=== PATIENT | male | born 1930 | race African-American/Black ===

== ENCOUNTER 2017-03-24 00:54 | Inpatient (IN) | payer MEDICARE, OTHER ==
[~2017-03-24] VITALS: Ht 182.9 cm; Wt 83.7 kg
[2017-03-24] MEDS ORDERED: TIMO10DR5 EACHEYE (02:16)
[2017-03-24] MEDS ORDERED: ERGO500027 PO (02:16)
[2017-03-24] MEDS ORDERED: SIMV20TA3 PO (02:16)
[2017-03-24] MEDS ORDERED: TAMS0.4C2 PO (02:16)
[2017-03-24] MEDS ORDERED: DONE10TA7 PO (02:16)
[2017-03-24] MEDS ORDERED: FINA5TAB4 PO (02:16)
[2017-03-24] MEDS ORDERED: FLUT16SP21 NS (02:16)
[2017-03-24] MEDS ORDERED: LISI10TA2 PO (02:16)
[2017-03-24] MEDS ORDERED: MEMA10TA PO (02:16)
[2017-03-24] MEDS ORDERED: LORA10TA3 PO (02:16)
[2017-03-24 02:18] VITALS: BP 144/73
[2017-03-24] MEDS ORDERED: METHYL SALICYLATE/MENTHOL TOPICAL OINTMENT 29GM TUBE. TP PRN (03:15)
[2017-03-24] MEDS ORDERED: ACETAMINOPHEN 325 MG TABLET PO PRN (03:15)
[2017-03-24] MEDS ORDERED: MAG HYDROX/AL HYDROX/SIMETH 30 ML ORAL.SUSP PO PRN (03:15)
[2017-03-24] MEDS ORDERED: MAGNESIUM HYDROXIDE 2,400 MG/30 ML ORAL.SUSP. PO PRN (03:15)
[2017-03-24 05:38] VITALS: BP 136/81
[2017-03-24 06:39] LABS: BILIRUBIN,URINE NEG (NEG); CLARITY,URINE CLEAR; COLOR,URINE YELLOW; GLUCOSE,URINE NEG (NEG); NITRITE,URINE NEG (NEG); RBC,URINE RARE /HPF (0-2); UROBILINOGEN,URINE 0.2 mg/dL (0.2 mg/dL); WBC,URINE RARE /HPF (0-4)
[2017-03-24 06:40] LABS: BACTERIA,URINE 0 /HPF (0-FEW); HYALINE CASTS, URINE OCC /HPF; SQUAMOUS EPITHELIAL CELL,UR OCC /LPF
[2017-03-24 07:53] LABS: BASO # 0.1 x10^3/uL (0.0-0.2); BASO % 1 % (0-3); EOS # 0.1 x10^3/uL (0.0-0.7); EOS % 2 % (0-3); HEMOGLOBIN 11.1 g/dL (13.0-17.5); LYMPH # 1.4 x10^3/uL (1.0-4.8); LYMPH % 28 % (24-48); MEAN CORPUSCULAR HEMOGLOBIN 28 pg (25-35); MEAN CORPUSCULAR HGB CONC 33 g/dL (31-37); MEAN CORPUSCULAR VOLUME 86 fL (79-100); MONO # 0.7 x10^3/uL (0.0-1.1); MONO % 13 % (0-9); NEUT # 2.9 x10^3uL (1.8-7.7); NEUT % 56 % (31-73); PLATELET COUNT 108 x10^3/uL (140-400); RED BLOOD COUNT 3.96 x10^6/uL (4.30-5.70); RED CELL DISTRIBUTION WIDTH 13.7 % (11.5-14.5); WHITE BLOOD COUNT 5.2 x10^3/uL (4.0-11.0)
[2017-03-24 08:14] LABS: ALBUMIN 3.4 g/dL (3.4-5.0); CALCIUM 8.4 mg/dL (8.5-10.1); CREATININE 1.8 mg/dL (0.7-1.3); GFR 43.5; POTASSIUM 3.9 mmol/L (3.5-5.1); TOTAL BILIRUBIN 0.3 mg/dL (0.2-1.0); TOTAL PROTEIN 6.8 g/dL (6.4-8.2)
[2017-03-24] MEDS ORDERED: LISINOPRIL 10 MG TABLET PO SCH (09:00)
[2017-03-24] MEDS: DONEPEZIL HCL 10 MG TABLET PO SCH (09:26)
[2017-03-24] MEDS: FLUTICASONE 50MCG/NASAL SPRAY 16GM BOTTLE. NS SCH (09:27)
[2017-03-24] MEDS: MEMANTINE 10 MG TABLET. PO SCH ×2 (09:27→20:00)
[2017-03-24] MEDS: CETIRIZINE HCL 10 MG TABLET PO SCH (09:27)
[2017-03-24] MEDS: TIMOLOL 0.5% OPHTH SOLUTION 5ML BOTTLE. OU SCH (09:27)
[2017-03-24] MEDS: TAMSULOSIN 0.4 MG CAP.ER.24H. PO SCH (09:27)
[2017-03-24] MEDS: CHOLECALCIFEROL (VITAMIN D3) 50,000 UNIT CAPSULE PO SCH (09:28)
[2017-03-24 15:55] LABS: THYROID STIM HORMONE (TSH) 2.15 uIU/mL (0.358-3.740)
[2017-03-24 16:37] VITALS: BP 122/66
[2017-03-24 19:08] LABS: T3 TOTAL 80 ng/dL (71-180); THYROXINE 7.3 ug/dL (4.5-12.0)
[2017-03-24] MEDS: SIMVASTATIN 20 MG TABLET PO SCH (20:00)
[2017-03-24] MEDS: FINASTERIDE 5 MG TABLET PO SCH (20:00)
--- NOTE | 2017-03-24 20:05 | PDOC ---
Exam Kj Demential Exam: Kj Note: Please also refer to the separate dictated note~for this date of service dictated separately.~Patient seen individually. Discussed the patient with Nursing staff reviewed the chart.~Reviewed interim history and current functioning. Reviewed vital signs,~Labs/ Radiology~and current medications noted below. Continue current treatment with the changes noted in the dictated addendum note Assessment: Vital Signs: Vital Signs Date Time Temp Pulse Resp B/P (MAP) Pulse Ox O2 Delivery O2 Flow Rate FiO2 03/24/17 16:37 98.0 84 20 122/66 (84) 97 03/24/17 05:38 Room Air I&O Intake and Output 03/24/17 07:00 Intake Total 360 ml Balance 360 ml Intake Oral 360 ml # Voids 1 Labs: Laboratory Tests Test 03/24/17 05:50 03/24/17 07:26 Urine Collection Type Unknown Urine Color Yellow Urine Clarity Clear Urine pH 5.5 Urine Specific [place] 1.015 Urine Protein Neg (NEG-TRACE) Urine Glucose (UA) Neg mg/dL (NEG) Urine Ketones (Stick) Neg mg/dL (NEG) Urine Blood Trace (NEG) Urine Nitrite Neg (NEG) Urine Bilirubin Neg (NEG) Urine Urobilinogen Dipstick 0.2 mg/dL (0.2 mg/dL) Urine Leukocyte Esterase Neg (NEG) Urine RBC Rare /HPF (0-2) Urine WBC Rare /HPF (0-4) Urine Squamous Epithelial Cells Occ /LPF Urine Bacteria 0 /HPF (0-FEW) Urine Hyaline Casts Occ /HPF Urine Mucus Slight /LPF White Blood Count 5.2 x10^3/uL (4.0-11.0) Red Blood Count 3.96 x10^6/uL (4.30-5.70) L Hemoglobin 11.1 g/dL (13.0-17.5) L Hematocrit 34.0 % (39.0-53.0) L Mean Corpuscular Volume 86 fL (79-100) Mean Corpuscular Hemoglobin 28 pg (25-35) Mean Corpuscular Hemoglobin Concent 33 g/dL (31-37) Red Cell Distribution Width 13.7 % (11.5-14.5) Platelet Count 108 x10^3/uL (140-400) L Neutrophils (%) (Auto) 56 % (31-73) Lymphocytes (%) (Auto) 28 % (24-48) Monocytes (%) (Auto) 13 % (0-9) H Eosinophils (%) (Auto) 2 % (0-3) Basophils (%) (Auto) 1 % (0-3) Neutrophils # (Auto) 2.9 x10^3uL (1.8-7.7) Lymphocytes # (Auto) 1.4 x10^3/uL (1.0-4.8) Monocytes # (Auto) 0.7 x10^3/uL (0.0-1.1) Eosinophils # (Auto) 0.1 x10^3/uL (0.0-0.7) Basophils # (Auto) 0.1 x10^3/uL (0.0-0.2) Sodium Level 142 mmol/L (136-145) Potassium Level 3.9 mmol/L (3.5-5.1) Chloride Level 108 mmol/L (98-107) H Carbon Dioxide Level 29 mmol/L (21-32) Anion Gap 5 (6-14) L Blood Urea Nitrogen 28 mg/dL (8-26) H Creatinine 1.8 mg/dL (0.7-1.3) H Estimated GFR (Cockcroft-Gault) 43.5 BUN/Creatinine Ratio 16 (6-20) Glucose Level 94 mg/dL (70-99) Calcium Level 8.4 mg/dL (8.5-10.1) L Magnesium Level 2.0 mg/dL (1.8-2.4) Total Bilirubin 0.3 mg/dL (0.2-1.0) Aspartate Amino Transferase (AST) 21 U/L (15-37) Alanine Aminotransferase (ALT) 21 U/L (16-63) Alkaline Phosphatase 61 U/L (46-116) Total Protein 6.8 g/dL (6.4-8.2) Albumin 3.4 g/dL (3.4-5.0) Albumin/Globulin Ratio 1.0 (1.0-1.7) Triglycerides Level 43 mg/dL (0-150) Cholesterol Level 140 mg/dL (0-200) LDL Cholesterol, Calculated 74 mg/dL (0-100) VLDL Cholesterol, Calculated 8 mg/dL (0-40) Non-HDL Cholesterol Calculated 82 mg/dL (0-129) HDL Cholesterol 58 mg/dL (40-60) Cholesterol/HDL Ratio 2.0 Vitamin B12 Level 447 pg/mL (247-911) 25-Hydroxy Vitamin D Total Pending Thyroid Stimulating Hormone (TSH) 2.150 uIU/mL (0.358-3.740) Thyroxine (T4) 7.3 ug/dL (4.5-12.0) Total Triiodothyronine (TT3) 80 ng/dL (71-180) RPR Titer Additional Testing Pending Current Medications: Meds: Current Medications Acetaminophen (Tylenol) 650 mg PRN Q6HRS PRN PO PAIN / TEMP; Start 03/24/17 at 03:15 Multi-Ingredient Ointment (Analgesic [place]) 1 stefanie PRN QID PRN TP MUSCLE PAIN; Start 03/24/17 at 03:15 Al Hydroxide/Mg Hydroxide (Mylanta Plus Xs) 15 ml PRN AFTMEALHC PRN PO DYSPEPSIA; Start 03/24/17 at 03:15 Magnesium Hydroxide (Milk Of Magnesia) 2,400 mg PRN QHS PRN PO CONSTIPATION; Start 03/24/17 at 03:15 Finasteride (Proscar) 5 mg HS PO Last administered on 03/24/17 20:00; Start at 21:00 Fluticasone Propionate (Flonase) 2 spray DAILY NS Last administered on 09:27; Start 03/24/17 at 09:00 Lisinopril (Prinivil) 10 mg DAILY PO Last administered on 03/24/17 09:26; Start 03/24/17 at 09:00; Stop 03/24/17 at 16:29; Status DC Simvastatin (Zocor) 20 mg HS PO Last administered on 03/24/17 20:00; Start at 21:00 Tamsulosin HCl (Flomax) 0.8 mg DAILY PO Last administered on 03/24/17 09:27; Start 03/24/17 at 09:00 Timolol Maleate (Timoptic 0.5% Oph) 1 drop DAILY OU Last administered on 03/24 09:27; Start 03/24/17 at 09:00 Vitamin D (Vitamin D3) 50,000 unit WEEKLY PO Last administered on 03/24/17 09: 28; Start 03/24/17 at 09:00 Cetirizine HCl (ZyrTEC) 10 mg DAILY PO Last administered on 03/24/17 09:27; Start 03/24/17 at 09:00 Donepezil HCl (Aricept) 10 mg DAILY PO Last administered on 03/24/17 09:26; Start 03/24/17 at 09:00 Memantine (Namenda) 10 mg BID PO Last administered on 03/24/17 20:00; Start at 09:00 Olanzapine (ZyPREXA ZYDIS) 2.5 mg PRN Q2HR PRN PO PSYCHOSIS; Start 03/24/17 at 04:30 Amlodipine Besylate (Norvasc) 5 mg DAILY PO ; Start 03/25/17 at 09:00 Sertraline HCl (Zoloft) 25 mg DAILY PO ; Start 03/25/17 at 09:00 Active Scripts Active Reported Timoptic (Timolol Maleate) 10 Ml Drops 1 Drop EACHEYE DAILY Tamsulosin Hcl 0.4 Mg Cap.er.24h 0.8 Mg PO DAILY Simvastatin 20 Mg Tablet 20 Mg PO HS Namenda (Memantine Hcl) 10 Mg Tablet 10 Mg PO BID Loratadine 10 Mg Tablet 10 Mg PO DAILY Lisinopril 10 Mg Tablet 10 Mg PO DAILY Fluticasone Propionate Nasal [place] (Fluticasone Propionate) 16 Gm [place].susp 2 [place] NS DAILY Finasteride 5 Mg Tablet 5 Mg PO HS Vitamin D2 (Ergocalciferol (Vitamin D2)) 50,000 Unit Capsule 50,000 Unit PO WEEKLY Donepezil Hcl 10 Mg Tablet 10 Mg PO DAILY Diagnosis: Problems: (1) Anxiety disorder (2) Dementia, vascular, with depression (3) Dementia, vascular, with delusions (4) Dementia in Alzheimer's disease with depression (5) 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
--- NOTE | 2017-03-25 00:14 | HP ---
ADMIT DATE: 03/24/2017 IDENTIFYING DATA: The patient is an 86-year-old -English male, referred to us from the Emergency Room at the [facility] where he presented from home after he became aggressive towards his . This had been worsening over the past 1 week. He threatened to shoot his reportedly. He had lost his driving privileges on 03/23/2017 on account of his worsening dementia, which he would not admit to. Reportedly, the has ALS and is not able to help him as much now, thus further worsening his agitation, mood lability, aggression. We were contacted by the Emergency Room physician at the [facility], who felt the patient was potentially dangerous if were to return home. Given some of the above behaviors and his confusion and he needed inpatient psychiatric stabilization, thus prompting this admission. CHIEF COMPLAINT: "I am okay. I was in the [place]. My memory is just fine. The year is 2014." HISTORY OF PRESENT ILLNESS: The patient has a history of dementia, Alzheimer's vascular type. Reportedly, lives at home with his and recently he has been getting more agitated, aggressive, threatening to shoot her. He also lost his driving privileges very recently due to dangerous behaviors behind the wheel. He has had sleep and appetite changes, minimizes most of his problems. He has been paranoid. No active suicidal ideation noted. No specific homicidal ideation other than noted above. No clear history of bipolar disorder. PAST PSYCHIATRIC HISTORY: Positive for progressive dementia followed by Dr. Fraser at the [facility]. PAST MEDICAL HISTORY: GERD, carpal tunnel syndrome, BPH, hypertension, hyperlipidemia, chronic kidney disease. Diet is regular. Ambulates independently. UA was negative at the [facility]. Code status is full code. ALLERGIES: RED DYE. CURRENT PSYCHOTROPICS: Namenda 10 mg b.i.d., Aricept 10 mg a day, Zyprexa p.r.n. FAMILY HISTORY: Noncontributory. SOCIAL HISTORY: No history of alcohol or drug abuse, physical, sexual or elder abuse. He is not known to be a perpetrator. MENTAL STATUS EXAMINATION: The patient was seen individually the evening of 03/24/2017. I had been contacted by the nursing staff around midnight of 03/23/2015, morning of 03/24/2017, after we were contacted by the ER physician at the [facility]. I have reviewed all of this information and at that time, I had agreed to admit the patient. The patient felt the year was 2014. He is somewhat paranoid, forgetful, minimizes his memory problems, able to spell "WORLD" forward with some assistance, unable to spell it backward, "I can barely spell it forward." He is unable to do serial 7's. Speech is coherent, somewhat anxious, irritable at times. No active suicidal or homicidal ideation. Attention span short, language function intact. LABORATORY DATA: Reviewed. REVIEW OF SYSTEMS: No CV, , pulmonary, eye, ENT system symptoms on review. IMPRESSION: Major neurocognitive disorder, Alzheimer, vascular with depression, delusion, behavioral disturbance; anxiety disorder, unspecified; impulse control disorder, unspecified. Rest as above. PLAN: Admit to the Geropsychiatry Unit at [facility]. I will see the patient daily individually from a psychiatric standpoint and medical followup per Dr. aMrtin/Dr. Baptiste. Continue the patient on his current psychotropics, start Zoloft 25 mg a day for mood, anxiety, obsessive symptoms along with irritability. We will make further adjustments as clinically indicated. VALERIY LOPEZ MD DR: KATERYNA/augusto JOB#: [id number] / [id number]
[2017-03-25 05:09] LABS: HEMOGLOBIN A1C 5.6 % (4.8-5.6)
[2017-03-25 06:34] VITALS: BP 127/68
[2017-03-25] MEDS ORDERED: SERTRALINE 25 MG TABLET. PO SCH (09:00)
[2017-03-25] MEDS: amLODIPine BESYLATE 5 MG TABLET PO SCH (09:00)
[2017-03-25] MEDS: MEMANTINE 10 MG TABLET. PO SCH ×2 (09:16→19:53)
[2017-03-25] MEDS: TAMSULOSIN 0.4 MG CAP.ER.24H. PO SCH (09:16)
[2017-03-25] MEDS: CETIRIZINE HCL 10 MG TABLET PO SCH (09:16)
[2017-03-25] MEDS: DONEPEZIL HCL 10 MG TABLET PO SCH (09:16)
[2017-03-25] MEDS: TIMOLOL 0.5% OPHTH SOLUTION 5ML BOTTLE. OU SCH (09:19)
[2017-03-25] MEDS: FLUTICASONE 50MCG/NASAL SPRAY 16GM BOTTLE. NS SCH (09:19)
--- NOTE | 2017-03-25 10:14 | CONS ---
DATE OF CONSULTATION: 03/24/2017 Consult for medical management for the patient. HISTORY OF PRESENT ILLNESS: The patient is an 86-year-old male patient who was admitted on the account becoming more aggressive with his over the past week, possibly threatening to shoot her. He apparently lost his driving privileges on 03/23/2017. His has amyotrophic lateral sclerosis and she is not able to help him as much now and was admitted for inpatient psychiatric stabilization. On questioning him, he denied any complaint. PAST MEDICAL HISTORY: Significant for hypertension, hyperlipidemia, chronic kidney disease, benign prostatic hypertrophy, carpal tunnel syndrome and gastroesophageal reflux disease. PAST PSYCHIATRIC HISTORY: Significant for Alzheimer's disease and dementia. PAST SURGICAL HISTORY: Unremarkable. ALLERGIES: HE HAS ALLERGIES TO RED DYE. MEDICATIONS: He is currently on following medications: He is on Aricept 10 mg p.o. daily, Ergocalciferol 50,000 international units once a week, finasteride 5 mg at bedtime, fluticasone propionate 2 sprays to each nostril daily, lisinopril 10 mg once a day, loratadine 10 mg once a day, Namenda 10 mg p.o. b.i.d., simvastatin 20 mg at bedtime, tamsulosin 0.8 mg daily and timolol maleate 1 drop to each eye daily. FAMILY HISTORY: Unremarkable. SOCIAL HISTORY: He is , currently does not smoke, drink alcohol or use recreational drugs. REVIEW OF SYSTEMS: As in history of the present illness. PHYSICAL EXAMINATION GENERAL: When I examined him, he was sitting on the edge of the bed comfortably, in no apparent distress, slightly pale, but no jaundice, cyanosis, no lymphadenopathy, no thyromegaly, no jugular venous distention, no limb edema. VITAL SIGNS: His heart rate was 70, blood pressure was 136/81, temperature was 98, respiratory rate 20, and oxygen saturation was 98% on room air. HEENT: Showed normocephalic, atraumatic. NECK: Supple. HEART: Showed normal first and second heart sounds. No gallop, rub or murmur. CHEST: Clear to auscultation. No crepitation or rhonchi. ABDOMEN: Distended, soft, nontender. No guarding or rigidity. No organomegaly. Hernial orifices intact. Bowel sounds normal. NEUROLOGIC: He was awake, alert and oriented to time, place and person. Cranial nerves intact. EXTREMITIES: He moves extremities without difficulty, ambulates without assistance or assistive devices. LABORATORY DATA: Showed a serum sodium of 142, potassium 3.9, chloride 108, bicarbonate 29, anion gap of 5, BUN 28, creatinine 1.8. Estimated GFR was 43 mL per minute. His glucose was 94, calcium was 8.4, magnesium 2. Total bilirubin, AST, ALT, alkaline phosphatase were normal. Total protein was 6.8, albumin 3.4. Serum triglycerides were 43, total cholesterol 140, LDL was 74, VLDL was 8, and HDL cholesterol was 58. Cholesterol to HDL cholesterol ratio was 2. His vitamin B12 . TSH 2.15. His white cell count was 5200, hemoglobin 11, hematocrit 34, MCV 86 and platelet count of 108,000 with normal manual differential. Urinalysis showed the urine was yellow, clear with a pH of 5.5, specific gravity of 1.015. The urine was negative for protein, glucose, ketones, trace blood, negative for nitrite and leukocyte esterase. There are rare rbcs, rare wbcs, no bacteria. SUMMARY: This is an 86-year-old -[place] male patient who apparently lost his driving privileges and became more aggressive with his last week, possibly threatening to shoot her. Basically, all this happened when he went to the [facility] and the doctor told him that he could not drive. He went home and all the guns were taken out of the house as he threatened to shoot his and was admitted for inpatient psychiatric stabilization medically. His vital signs are within acceptable range. His lab work showed that he has chronic kidney injury with a BUN of 28, creatinine 1.8. His hemoglobin and hematocrit was 11 and 34, he has normochromic normocytic anemia; however, he has also thrombocytopenia with platelet count of 108,000. My plan is to discontinue his lisinopril and start him on some amlodipine and to repeat his lab work. Thank you, Dr. Flynn for allowing me to participate in the care of this patient. ZURI JARA MD DR: ELIAN/augusto JOB#: [id number] / [id number]
[2017-03-25 16:41] VITALS: BP 114/73
[2017-03-25] MEDS: FINASTERIDE 5 MG TABLET PO SCH (19:53)
[2017-03-25] MEDS: SIMVASTATIN 20 MG TABLET PO SCH (19:53)
--- NOTE | 2017-03-25 20:05 | PDOC ---
Exam Kj Demential Exam: Kj Note: Please also refer to the separate dictated note~for this date of service dictated separately.~Patient seen individually. Discussed the patient with Nursing staff reviewed the chart.~Reviewed interim history and current functioning. Reviewed vital signs,~Labs/ Radiology~and current medications noted below. Continue current treatment with the changes noted in the dictated addendum note Assessment: Vital Signs: Vital Signs Date Time Temp Pulse Resp B/P (MAP) Pulse Ox O2 Delivery O2 Flow Rate FiO2 03/25/17 16:41 97.7 80 20 114/73 (87) 96 03/24/17 05:38 Room Air I&O Intake and Output 03/25/17 07:00 Intake Total 1700 ml Balance 1700 ml Intake Oral 1700 ml # Voids 1 # Bowel Movements 1 Current Medications: Meds: Current Medications Acetaminophen (Tylenol) 650 mg PRN Q6HRS PRN PO PAIN / TEMP; Start 03/24/17 at 03:15 Multi-Ingredient Ointment (Analgesic [place]) 1 stefanie PRN QID PRN TP MUSCLE PAIN; Start 03/24/17 at 03:15 Al Hydroxide/Mg Hydroxide (Mylanta Plus Xs) 15 ml PRN AFTMEALHC PRN PO DYSPEPSIA; Start 03/24/17 at 03:15 Magnesium Hydroxide (Milk Of Magnesia) 2,400 mg PRN QHS PRN PO CONSTIPATION; Start 03/24/17 at 03:15 Finasteride (Proscar) 5 mg HS PO Last administered on 03/25/17 19:53; Start at 21:00 Fluticasone Propionate (Flonase) 2 spray DAILY NS Last administered on 09:19; Start 03/24/17 at 09:00 Lisinopril (Prinivil) 10 mg DAILY PO Last administered on 03/24/17 09:26; Start 03/24/17 at 09:00; Stop 03/24/17 at 16:29; Status DC Simvastatin (Zocor) 20 mg HS PO Last administered on 03/25/17 19:53; Start at 21:00 Tamsulosin HCl (Flomax) 0.8 mg DAILY PO Last administered on 03/25/17 09:16; Start 03/24/17 at 09:00 Timolol Maleate (Timoptic 0.5% Ophth) 1 drop DAILY OU Last administered on 03/25 09:19; Start 03/24/17 at 09:00 Vitamin D (Vitamin D3) 50,000 unit WEEKLY PO Last administered on 03/24/17 09: 28; Start 03/24/17 at 09:00 Cetirizine HCl (ZyrTEC) 10 mg DAILY PO Last administered on 03/25/17 09:16; Start 03/24/17 at 09:00 Donepezil HCl (Aricept) 10 mg DAILY PO Last administered on 03/25/17 09:16; Start 03/24/17 at 09:00 Memantine (Namenda) 10 mg BID PO Last administered on 03/25/17 19:53; Start at 09:00 Olanzapine (ZyPREXA ZYDIS) 2.5 mg PRN Q2HR PRN PO PSYCHOSIS; Start 03/24/17 at 04:30 Amlodipine Besylate (Norvasc) 5 mg DAILY PO Last administered on 03/25/17 09: 00; Start 03/25/17 at 09:00 Sertraline HCl (Zoloft) 25 mg DAILY PO Last administered on 03/25/17 09:21; Start 03/25/17 at 09:00; Stop 03/25/17 at 18:40; Status DC Sertraline HCl (Zoloft) 50 mg DAILY PO ; Start 03/26/17 at 09:00 Active Scripts Active Reported Timoptic (Timolol Maleate) 10 Ml Drops 1 Drop EACHEYE DAILY Tamsulosin Hcl 0.4 Mg Cap.er.24h 0.8 Mg PO DAILY Simvastatin 20 Mg Tablet 20 Mg PO HS Namenda (Memantine Hcl) 10 Mg Tablet 10 Mg PO BID Loratadine 10 Mg Tablet 10 Mg PO DAILY Lisinopril 10 Mg Tablet 10 Mg PO DAILY Fluticasone Propionate Nasal [place] (Fluticasone Propionate) 16 Gm [place].susp 2 [place] NS DAILY Finasteride 5 Mg Tablet 5 Mg PO HS Vitamin D2 (Ergocalciferol (Vitamin D2)) 50,000 Unit Capsule 50,000 Unit PO WEEKLY Donepezil Hcl 10 Mg Tablet 10 Mg PO DAILY Diagnosis: Problems: (1) Anxiety disorder (2) Dementia, vascular, with depression (3) Dementia, vascular, with delusions (4) Dementia in Alzheimer's disease with depression (5) Dementia in Alzheimer's disease with delusions (6) Psychosis, atypical VALERIY LOPEZ MD Mar 25, 2017 20:05
--- NOTE | 2017-03-25 23:38 | ACF ---
Admission Criteria Forms PSYCHIATRIC DISORDERS Clinical Indications for Inpatient Care (Place 'X' for any and all applicable criteria): Ongoing inpatient care may be needed for 1 or more of the following(1)(2)(3)(4)( 6)(7)(8): [ ]I. Danger to self or others not manageable at lower level of care. [ ]II. Grave disability (eg, inability to perform self care necessary at lower level of care) [ ]III. Agitation or inappropriate behavior interfering with care for primary condition (eg, attempting to discontinue lines or drains prematurely, unable to cooperate with respiratory care) [x]IV. Severe disability or disorder indicated by ALL of the following: [x]a) Severe behavioral health disorder-related symptoms or condition indicated by 1 or more of the following: [x]i) Severe problem with cognition, memory, judgment, or impulse control [ ]ii) Severe clinical manifestations (eg, hallucinations, delusions, other acute psychotic symptoms, gume, extreme agitation or anxiety) [x]b) Patient management at lower level of care is not feasible until acute intervention or modification is initiated. Extended stay beyond goal length of stay for the primary condition may be needed untilALLof the following are present(1)(2)(3)(4)(722)(23): [ ]a) Danger to self or others is absent or manageable at lower level of care [ ]b) Behavior crisis management, including physical or chemical restraints, is required and is not available at a lower level of care. [ ]c) Behavioral symptoms (e.g., agitation, somnolence, inappropriate behavior) are present, and are not manageable at a lower level of care. [ ]d) Patient cannot understand follow-up treatment and crisis plan. [ ]e) Provider and supports are sufficiently available at lower level of care. [ ]f) Patient can participate (e.g., verify absence of plan for harm) and is in needed of monitoring. The original [facility] content created by [facility] [employer] has been revised. The portions of the content which have been revised are identified through the use of italic text, and [employer] has neither reviewed nor approved the modified material. All other unmodified content is copyright [facility] [id number]. Please see references footnoted in the original [facility] edition 2015 Admission Criteria Met?: Yes KONG VEGA Mar 25, 2017 23:38
[2017-03-26 06:01] VITALS: BP 151/82
[2017-03-26] MEDS: amLODIPine BESYLATE 5 MG TABLET PO SCH (09:00)
[2017-03-26] MEDS: CETIRIZINE HCL 10 MG TABLET PO SCH (10:15)
[2017-03-26] MEDS: DONEPEZIL HCL 10 MG TABLET PO SCH (10:16)
[2017-03-26] MEDS: MEMANTINE 10 MG TABLET. PO SCH ×2 (10:16→20:30)
[2017-03-26] MEDS: TAMSULOSIN 0.4 MG CAP.ER.24H. PO SCH (10:16)
[2017-03-26] MEDS: TIMOLOL 0.5% OPHTH SOLUTION 5ML BOTTLE. OU SCH (10:16)
[2017-03-26] MEDS: FLUTICASONE 50MCG/NASAL SPRAY 16GM BOTTLE. NS SCH (10:17)
[2017-03-26] MEDS: SERTRALINE 25 MG TABLET. PO SCH (10:19)
[2017-03-26 16:24] VITALS: BP 143/67
--- NOTE | 2017-03-26 20:03 | PDOC ---
Exam Kj Demential Exam: Kj Note: Please also refer to the separate dictated note~for this date of service dictated separately.~Patient seen individually. Discussed the patient with Nursing staff reviewed the chart.~Reviewed interim history and current functioning. Reviewed vital signs,~Labs/ Radiology~and current medications noted below. Continue current treatment with the changes noted in the dictated addendum note Assessment: Vital Signs: Vital Signs Date Time Temp Pulse Resp B/P (MAP) Pulse Ox O2 Delivery O2 Flow Rate FiO2 03/26/17 16:24 97.9 81 18 143/67 (92) 97 03/24/17 05:38 Room Air I&O Intake and Output 03/26/17 07:00 Intake Total 1320 ml Balance 1320 ml Intake Oral 1320 ml # Voids 1 Current Medications: Meds: Current Medications Acetaminophen (Tylenol) 650 mg PRN Q6HRS PRN PO PAIN / TEMP; Start 03/24/17 at 03:15 Multi-Ingredient Ointment (Analgesic [place]) 1 stefanie PRN QID PRN TP MUSCLE PAIN; Start 03/24/17 at 03:15 Al Hydroxide/Mg Hydroxide (Mylanta Plus Xs) 15 ml PRN AFTMEALHC PRN PO DYSPEPSIA; Start 03/24/17 at 03:15 Magnesium Hydroxide (Milk Of Magnesia) 2,400 mg PRN QHS PRN PO CONSTIPATION; Start 03/24/17 at 03:15 Finasteride (Proscar) 5 mg HS PO Last administered on 03/25/17 19:53; Start at 21:00 Fluticasone Propionate (Flonase) 2 spray DAILY NS Last administered on 10:17; Start 03/24/17 at 09:00 Lisinopril (Prinivil) 10 mg DAILY PO Last administered on 03/24/17 09:26; Start 03/24/17 at 09:00; Stop 03/24/17 at 16:29; Status DC Simvastatin (Zocor) 20 mg HS PO Last administered on 03/25/17 19:53; Start at 21:00 Tamsulosin HCl (Flomax) 0.8 mg DAILY PO Last administered on 03/26/17 10:16; Start 03/24/17 at 09:00 Timolol Maleate (Timoptic 0.5% Ophth) 1 drop DAILY OU Last administered on 03/26 10:16; Start 03/24/17 at 09:00 Vitamin D (Vitamin D3) 50,000 unit WEEKLY PO Last administered on 03/24/17 09: 28; Start 03/24/17 at 09:00 Cetirizine HCl (ZyrTEC) 10 mg DAILY PO Last administered on 03/26/17 10:15; Start 03/24/17 at 09:00 Donepezil HCl (Aricept) 10 mg DAILY PO Last administered on 03/26/17 10:16; Start 03/24/17 at 09:00 Memantine (Namenda) 10 mg BID PO Last administered on 03/26/17 10:16; Start at 09:00 Olanzapine (ZyPREXA ZYDIS) 2.5 mg PRN Q2HR PRN PO PSYCHOSIS; Start 03/24/17 at 04:30 Amlodipine Besylate (Norvasc) 5 mg DAILY PO Last administered on 03/26/17 09: 00; Start 03/25/17 at 09:00 Sertraline HCl (Zoloft) 25 mg DAILY PO Last administered on 03/25/17 09:21; Start 03/25/17 at 09:00; Stop 03/25/17 at 18:40; Status DC Sertraline HCl (Zoloft) 50 mg DAILY PO Last administered on 03/26/17 10:19; Start 03/26/17 at 09:00 Quetiapine Fumarate (SEROquel) 25 mg QHS PO ; Start 03/26/17 at 21:00 Active Scripts Active Reported Timoptic (Timolol Maleate) 10 Ml Drops 1 Drop EACHEYE DAILY Tamsulosin Hcl 0.4 Mg Cap.er.24h 0.8 Mg PO DAILY Simvastatin 20 Mg Tablet 20 Mg PO HS Namenda (Memantine Hcl) 10 Mg Tablet 10 Mg PO BID Loratadine 10 Mg Tablet 10 Mg PO DAILY Lisinopril 10 Mg Tablet 10 Mg PO DAILY Fluticasone Propionate Nasal [place] (Fluticasone Propionate) 16 Gm [place].susp 2 [place] NS DAILY Finasteride 5 Mg Tablet 5 Mg PO HS Vitamin D2 (Ergocalciferol (Vitamin D2)) 50,000 Unit Capsule 50,000 Unit PO WEEKLY Donepezil Hcl 10 Mg Tablet 10 Mg PO DAILY Diagnosis: Problems: (1) Anxiety disorder (2) Dementia, vascular, with depression (3) Dementia, vascular, with delusions (4) Dementia in Alzheimer's disease with depression (5) 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
[2017-03-26] MEDS: FINASTERIDE 5 MG TABLET PO SCH (20:30)
[2017-03-26] MEDS: SIMVASTATIN 20 MG TABLET PO SCH (20:30)
[2017-03-26] MEDS: QUEtiapine 25 MG TABLET. PO SCH (20:30)
--- NOTE | 2017-03-27 00:38 | PN ---
DATE: 03/25/2017 This is a late entry for 03/25/2017 and covers elements not covered in my initial note of 03/25/2017. I met with the patient evening of 03/25/2017. He remains somewhat confused, irritable at times, felt it was 07/2015 as I met with him. Son and [id number] visited. He was irritable in the evening. REVIEW OF SYSTEMS: No CV, , pulmonary, eye system symptoms on review. Reliability poor, did not seem to remember me even though I met him every day since he has been here. MENTAL STATUS EXAM: Oriented to himself and situation. Insight is somewhat limited. Judgment intact to standard questioning. Attention span short, language function intact. Mood and affect still somewhat anxious, labile at times, but less paranoid. LABORATORY DATA: Reviewed. IMPRESSION: Unchanged from initial note. PLAN: On 03/26/2017, increase Zoloft to 50 mg a day. Continue Namenda 10 b.i.d., Aricept 10 mg a day, Zyprexa p.r.n. Adjust as clinically indicated. Reviewed drug interactions, risk/benefit ratio favors no further change as of now. VALERIY LOPEZ MD DR: KATERYNA/augusto JOB#: [id number] / [id number]
[2017-03-27 06:21] VITALS: BP 127/79
[2017-03-27] MEDS: SERTRALINE 25 MG TABLET. PO SCH (08:21)
[2017-03-27] MEDS: CETIRIZINE HCL 10 MG TABLET PO SCH (08:21)
[2017-03-27] MEDS: DONEPEZIL HCL 10 MG TABLET PO SCH (08:21)
[2017-03-27] MEDS: TAMSULOSIN 0.4 MG CAP.ER.24H. PO SCH (08:22)
[2017-03-27] MEDS: amLODIPine BESYLATE 5 MG TABLET PO SCH (08:22)
[2017-03-27] MEDS: MEMANTINE 10 MG TABLET. PO SCH ×2 (08:22→19:50)
[2017-03-27] MEDS: TIMOLOL 0.5% OPHTH SOLUTION 5ML BOTTLE. OU SCH (08:23)
[2017-03-27] MEDS: FLUTICASONE 50MCG/NASAL SPRAY 16GM BOTTLE. NS SCH (08:23)
[2017-03-27 16:51] VITALS: BP 129/71
[2017-03-27] MEDS ORDERED: MELATONIN 3 MG TABLET PO PRN (18:45)
[2017-03-27] MEDS: FINASTERIDE 5 MG TABLET PO SCH (19:50)
[2017-03-27] MEDS: QUEtiapine 25 MG TABLET. PO SCH (19:51)
[2017-03-27] MEDS: SIMVASTATIN 20 MG TABLET PO SCH (19:51)
--- NOTE | 2017-03-27 20:10 | PDOC ---
Exam Kj Demential Exam: Kj Note: Please also refer to the separate dictated note~for this date of service dictated separately.~Patient seen individually. Discussed the patient with Nursing staff reviewed the chart.~Reviewed interim history and current functioning. Reviewed vital signs,~Labs/ Radiology~and current medications noted below. Continue current treatment with the changes noted in the dictated addendum note Assessment: Vital Signs: Vital Signs Date Time Temp Pulse Resp B/P (MAP) Pulse Ox O2 Delivery O2 Flow Rate FiO2 03/27/17 16:51 98.5 88 20 129/71 (90) 98 03/27/17 06:21 Room Air I&O Intake and Output 03/27/17 07:00 Intake Total 1080 ml Balance 1080 ml Intake Oral 1080 ml # Voids 1 Current Medications: Meds: Current Medications Acetaminophen (Tylenol) 650 mg PRN Q6HRS PRN PO PAIN / TEMP; Start 03/24/17 at 03:15 Multi-Ingredient Ointment (Analgesic [place]) 1 stefanie PRN QID PRN TP MUSCLE PAIN; Start 03/24/17 at 03:15 Al Hydroxide/Mg Hydroxide (Mylanta Plus Xs) 15 ml PRN AFTMEALHC PRN PO DYSPEPSIA; Start 03/24/17 at 03:15 Magnesium Hydroxide (Milk Of Magnesia) 2,400 mg PRN QHS PRN PO CONSTIPATION; Start 03/24/17 at 03:15 Finasteride (Proscar) 5 mg HS PO Last administered on 03/27/17 19:50; Start at 21:00 Fluticasone Propionate (Flonase) 2 spray DAILY NS Last administered on 08:23; Start 03/24/17 at 09:00 Lisinopril (Prinivil) 10 mg DAILY PO Last administered on 03/24/17 09:26; Start 03/24/17 at 09:00; Stop 03/24/17 at 16:29; Status DC Simvastatin (Zocor) 20 mg HS PO Last administered on 03/27/17 19:51; Start at 21:00 Tamsulosin HCl (Flomax) 0.8 mg DAILY PO Last administered on 03/27/17 08:22; Start 03/24/17 at 09:00 Timolol Maleate (Timoptic 0.5% Ophth) 1 drop DAILY OU Last administered on 03/27 08:23; Start 03/24/17 at 09:00 Vitamin D (Vitamin D3) 50,000 unit WEEKLY PO Last administered on 03/24/17 09: 28; Start 03/24/17 at 09:00 Cetirizine HCl (ZyrTEC) 10 mg DAILY PO Last administered on 03/27/17 08:21; Start 03/24/17 at 09:00 Donepezil HCl (Aricept) 10 mg DAILY PO Last administered on 03/27/17 08:21; Start 03/24/17 at 09:00 Memantine (Namenda) 10 mg BID PO Last administered on 03/27/17 19:50; Start at 09:00 Olanzapine (ZyPREXA ZYDIS) 2.5 mg PRN Q2HR PRN PO PSYCHOSIS Last administered on 03/27/17 00:26; Start 03/24/17 at 04:30 Amlodipine Besylate (Norvasc) 5 mg DAILY PO Last administered on 03/27/17 08: 22; Start 03/25/17 at 09:00 Sertraline HCl (Zoloft) 25 mg DAILY PO Last administered on 03/25/17 09:21; Start 03/25/17 at 09:00; Stop 03/25/17 at 18:40; Status DC Sertraline HCl (Zoloft) 50 mg DAILY PO Last administered on 03/27/17 08:21; Start 03/26/17 at 09:00 Quetiapine Fumarate (SEROquel) 25 mg QHS PO Last administered on 03/27/17 19: 51; Start 03/26/17 at 21:00 Melatonin 3 mg PRN QHS PRN PO INSOMNIA; Start 03/27/17 at 18:45 Active Scripts Active Reported Timoptic (Timolol Maleate) 10 Ml Drops 1 Drop EACHEYE DAILY Tamsulosin Hcl 0.4 Mg Cap.er.24h 0.8 Mg PO DAILY Simvastatin 20 Mg Tablet 20 Mg PO HS Namenda (Memantine Hcl) 10 Mg Tablet 10 Mg PO BID Loratadine 10 Mg Tablet 10 Mg PO DAILY Lisinopril 10 Mg Tablet 10 Mg PO DAILY Fluticasone Propionate Nasal [place] (Fluticasone Propionate) 16 Gm [place].susp 2 [place] NS DAILY Finasteride 5 Mg Tablet 5 Mg PO HS Vitamin D2 (Ergocalciferol (Vitamin D2)) 50,000 Unit Capsule 50,000 Unit PO WEEKLY Donepezil Hcl 10 Mg Tablet 10 Mg PO DAILY Diagnosis: Problems: (1) Anxiety disorder (2) Dementia, vascular, with depression (3) Dementia, vascular, 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
--- NOTE | 2017-03-28 02:41 | PN ---
DATE: 03/26/2017 This late entry 03/26/2017 covers elements not covered in my initial note. SUBJECTIVE: The patient was staffed at treatment team meeting morning of 03/26/2017, seen individually evening of 03/26/2017. The patient's son attended the treatment team meeting together with granddaughterMaritza. Reviewed the patient's history, diagnoses, medications, placement options at length. 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 REVIEW OF SYSTEMS: No CV, , pulmonary, eye, ENT system symptoms on review. Reliability poor. MENTAL STATUS EXAM: Oriented to himself. Insight, judgment, recent memory is impaired. Remote is better. Language function intact. Attention span short. Mood and affect lability is improved, less anxious. LABORATORY DATA: Reviewed. IMPRESSION: Unchanged from initial note. PLAN: Start Seroquel 25 mg p.o. at bedtime; Zoloft, continue at 50 mg a day; Namenda 10 b.i.d., Aricept 10 mg a day, Zyprexa p.r.n., adjust further as clinically indicated. Zoloft was recently increased. VALERIY LOPEZ MD DR: KATERYNA/augusto JOB#: [id number] / [id number]
[2017-03-28 06:19] VITALS: BP 159/89
--- NOTE | 2017-03-28 07:15 | EKG ---
[address] [address] Test Date: 2017-03-24 Test Time: 07:36:46 Pat Name: MARY JARAMILLO Department: Room: [address] [place] [address] Gender: Health Care Facility Administrator: : [id number] Requested By: ZURI JARA Order Number: [id number] Reading MD: Bryan Ruiz Measurements Intervals [place] Rate: P: IN: QRS: QRSD: T: QT: QTc: Interpretive Statements SR AMARILIS Electronically Signed On 04-06-2017 10:53:43 CDT by Bryan Ruiz
[2017-03-28] MEDS: SERTRALINE 25 MG TABLET. PO SCH (08:41)
[2017-03-28] MEDS: DONEPEZIL HCL 10 MG TABLET PO SCH (08:45)
[2017-03-28] MEDS: amLODIPine BESYLATE 5 MG TABLET PO SCH (08:45)
[2017-03-28] MEDS: TAMSULOSIN 0.4 MG CAP.ER.24H. PO SCH (08:45)
[2017-03-28] MEDS: CETIRIZINE HCL 10 MG TABLET PO SCH (08:45)
[2017-03-28] MEDS: MEMANTINE 10 MG TABLET. PO SCH ×2 (08:45→20:38)
[2017-03-28] MEDS: TIMOLOL 0.5% OPHTH SOLUTION 5ML BOTTLE. OU SCH (08:54)
[2017-03-28] MEDS: FLUTICASONE 50MCG/NASAL SPRAY 16GM BOTTLE. NS SCH (09:00)
[2017-03-28 15:56] VITALS: BP 103/58
[2017-03-28] MEDS: QUEtiapine 25 MG TABLET. PO SCH (20:38)
[2017-03-28] MEDS: SIMVASTATIN 20 MG TABLET PO SCH (20:38)
[2017-03-28] MEDS: FINASTERIDE 5 MG TABLET PO SCH (20:39)
--- NOTE | 2017-03-28 23:23 | PDOC ---
Exam Kj Demential Exam: Kj Note: Please also refer to the separate dictated note~for this date of service dictated separately.~Patient seen individually. Discussed the patient with Nursing staff reviewed the chart.~Reviewed interim history and current functioning. Reviewed vital signs,~Labs/ Radiology~and current medications noted below. Continue current treatment with the changes noted in the dictated addendum note Assessment: Vital Signs: Vital Signs Date Time Temp Pulse Resp B/P (MAP) Pulse Ox O2 Delivery O2 Flow Rate FiO2 03/28/17 15:56 98.7 81 20 103/58 (73) 96 03/27/17 06:21 Room Air I&O Intake and Output 03/28/17 07:00 Intake Total 1440 ml Balance 1440 ml Intake Oral 1440 ml Current Medications: Meds: Current Medications Acetaminophen (Tylenol) 650 mg PRN Q6HRS PRN PO PAIN / TEMP; Start 03/24/17 at 03:15 Multi-Ingredient Ointment (Analgesic [place]) 1 stefanie PRN QID PRN TP MUSCLE PAIN; Start 03/24/17 at 03:15 Al Hydroxide/Mg Hydroxide (Mylanta Plus Xs) 15 ml PRN AFTMEALHC PRN PO DYSPEPSIA; Start 03/24/17 at 03:15 Magnesium Hydroxide (Milk Of Magnesia) 2,400 mg PRN QHS PRN PO CONSTIPATION; Start 03/24/17 at 03:15 Finasteride (Proscar) 5 mg HS PO Last administered on 03/28/17 20:39; Start at 21:00 Fluticasone Propionate (Flonase) 2 spray DAILY NS Last administered on 09:00; Start 03/24/17 at 09:00 Lisinopril (Prinivil) 10 mg DAILY PO Last administered on 03/24/17 09:26; Start 03/24/17 at 09:00; Stop 03/24/17 at 16:29; Status DC Simvastatin (Zocor) 20 mg HS PO Last administered on 03/28/17 20:38; Start at 21:00 Tamsulosin HCl (Flomax) 0.8 mg DAILY PO Last administered on 03/28/17 08:45; Start 03/24/17 at 09:00 Timolol Maleate (Timoptic 0.5% Oph) 1 drop DAILY OU Last administered on 03/28 08:54; Start 03/24/17 at 09:00 Vitamin D (Vitamin D3) 50,000 unit WEEKLY PO Last administered on 03/24/17 09: 28; Start 03/24/17 at 09:00 Cetirizine HCl (ZyrTEC) 10 mg DAILY PO Last administered on 03/28/17 08:45; Start 03/24/17 at 09:00 Donepezil HCl (Aricept) 10 mg DAILY PO Last administered on 03/28/17 08:45; Start 03/24/17 at 09:00 Memantine (Namenda) 10 mg BID PO Last administered on 03/28/17 20:38; Start at 09:00 Olanzapine (ZyPREXA ZYDIS) 2.5 mg PRN Q2HR PRN PO PSYCHOSIS Last administered on 03/27/17 00:26; Start 03/24/17 at 04:30 Amlodipine Besylate (Norvasc) 5 mg DAILY PO Last administered on 03/28/17 08: 45; Start 03/25/17 at 09:00 Sertraline HCl (Zoloft) 25 mg DAILY PO Last administered on 03/25/17 09:21; Start 03/25/17 at 09:00; Stop 03/25/17 at 18:40; Status DC Sertraline HCl (Zoloft) 50 mg DAILY PO Last administered on 03/28/17 08:41; Start 03/26/17 at 09:00 Quetiapine Fumarate (SEROquel) 25 mg QHS PO Last administered on 03/28/17 20: 38; Start 03/26/17 at 21:00 Melatonin 3 mg PRN QHS PRN PO INSOMNIA; Start 03/27/17 at 18:45 Active Scripts Active Reported Timoptic (Timolol Maleate) 10 Ml Drops 1 Drop [place] DAILY Tamsulosin Hcl 0.4 Mg Cap.er.24h 0.8 Mg PO DAILY Simvastatin 20 Mg Tablet 20 Mg PO HS Namenda (Memantine Hcl) 10 Mg Tablet 10 Mg PO BID Loratadine 10 Mg Tablet 10 Mg PO DAILY Lisinopril 10 Mg Tablet 10 Mg PO DAILY Fluticasone Propionate Nasal [place] (Fluticasone Propionate) 16 Gm [place].susp 2 [place] NS DAILY Finasteride 5 Mg Tablet 5 Mg PO HS Vitamin D2 (Ergocalciferol (Vitamin D2)) 50,000 Unit Capsule 50,000 Unit PO WEEKLY Donepezil Hcl 10 Mg Tablet 10 Mg PO DAILY Diagnosis: Problems: (1) Anxiety disorder (2) Dementia, vascular, with depression (3) Dementia, vascular, with delusions (4) Dementia in Alzheimer's disease with depression (5) 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
[2017-03-29 05:52] VITALS: BP 161/82
[2017-03-29] MEDS: DONEPEZIL HCL 10 MG TABLET PO SCH (07:59)
[2017-03-29] MEDS: TAMSULOSIN 0.4 MG CAP.ER.24H. PO SCH (07:59)
[2017-03-29] MEDS: SERTRALINE 25 MG TABLET. PO SCH (07:59)
[2017-03-29] MEDS: amLODIPine BESYLATE 5 MG TABLET PO SCH (08:00)
[2017-03-29] MEDS: FLUTICASONE 50MCG/NASAL SPRAY 16GM BOTTLE. NS SCH (08:00)
[2017-03-29] MEDS: CETIRIZINE HCL 10 MG TABLET PO SCH (08:00)
[2017-03-29] MEDS: MEMANTINE 10 MG TABLET. PO SCH ×2 (08:00→20:52)
[2017-03-29] MEDS: TIMOLOL 0.5% OPHTH SOLUTION 5ML BOTTLE. OU SCH (08:01)
[2017-03-29 16:28] VITALS: BP 98/58
--- NOTE | 2017-03-29 20:03 | PDOC ---
Exam Kj Demential Exam: Kj Note: Please also refer to the separate dictated note~for this date of service dictated separately.~Patient seen individually. Discussed the patient with Nursing staff reviewed the chart.~Reviewed interim history and current functioning. Reviewed vital signs,~Labs/ Radiology~and current medications noted below. Continue current treatment with the changes noted in the dictated addendum note Assessment: Vital Signs: Vital Signs Date Time Temp Pulse Resp B/P (MAP) Pulse Ox O2 Delivery O2 Flow Rate FiO2 03/29/17 16:28 98.1 88 18 98/58 (71) 97 Room Air I&O Intake and Output 03/29/17 07:00 Intake Total 1205 ml Balance 1205 ml Intake Oral 1205 ml Current Medications: Meds: Current Medications Acetaminophen (Tylenol) 650 mg PRN Q6HRS PRN PO PAIN / TEMP; Start 03/24/17 at 03:15 Multi-Ingredient Ointment (Analgesic [place]) 1 stefanie PRN QID PRN TP MUSCLE PAIN; Start 03/24/17 at 03:15 Al Hydroxide/Mg Hydroxide (Mylanta Plus Xs) 15 ml PRN AFTMEALHC PRN PO DYSPEPSIA; Start 03/24/17 at 03:15 Magnesium Hydroxide (Milk Of Magnesia) 2,400 mg PRN QHS PRN PO CONSTIPATION; Start 03/24/17 at 03:15 Finasteride (Proscar) 5 mg HS PO Last administered on 03/28/17 20:39; Start at 21:00 Fluticasone Propionate (Flonase) 2 spray DAILY NS Last administered on 08:00; Start 03/24/17 at 09:00 Lisinopril (Prinivil) 10 mg DAILY PO Last administered on 03/24/17 09:26; Start 03/24/17 at 09:00; Stop 03/24/17 at 16:29; Status DC Simvastatin (Zocor) 20 mg HS PO Last administered on 03/28/17 20:38; Start at 21:00 Tamsulosin HCl (Flomax) 0.8 mg DAILY PO Last administered on 03/29/17 07:59; Start 03/24/17 at 09:00 Timolol Maleate (Timoptic 0.5% Ophth) 1 drop DAILY OU Last administered on 03/29 08:01; Start 03/24/17 at 09:00 Vitamin D (Vitamin D3) 50,000 unit WEEKLY PO Last administered on 03/24/17 09: 28; Start 03/24/17 at 09:00 Cetirizine HCl (ZyrTEC) 10 mg DAILY PO Last administered on 03/29/17 08:00; Start 03/24/17 at 09:00 Donepezil HCl (Aricept) 10 mg DAILY PO Last administered on 03/29/17 07:59; Start 03/24/17 at 09:00 Memantine (Namenda) 10 mg BID PO Last administered on 03/29/17 08:00; Start at 09:00 Olanzapine (ZyPREXA ZYDIS) 2.5 mg PRN Q2HR PRN PO PSYCHOSIS Last administered on 03/27/17 00:26; Start 03/24/17 at 04:30 Amlodipine Besylate (Norvasc) 5 mg DAILY PO Last administered on 03/29/17 08: 00; Start 03/25/17 at 09:00 Sertraline HCl (Zoloft) 25 mg DAILY PO Last administered on 03/25/17 09:21; Start 03/25/17 at 09:00; Stop 03/25/17 at 18:40; Status DC Sertraline HCl (Zoloft) 50 mg DAILY PO Last administered on 03/29/17 07:59; Start 03/26/17 at 09:00 Quetiapine Fumarate (SEROquel) 25 mg QHS PO Last administered on 03/28/17 20: 38; Start 03/26/17 at 21:00 Melatonin 3 mg PRN QHS PRN PO INSOMNIA; Start 03/27/17 at 18:45 Active Scripts Active Reported Timoptic (Timolol Maleate) 10 Ml Drops 1 Drop EACHEYE DAILY Tamsulosin Hcl 0.4 Mg Cap.er.24h 0.8 Mg PO DAILY Simvastatin 20 Mg Tablet 20 Mg PO HS Namenda (Memantine Hcl) 10 Mg Tablet 10 Mg PO BID Loratadine 10 Mg Tablet 10 Mg PO DAILY Lisinopril 10 Mg Tablet 10 Mg PO DAILY Fluticasone Propionate Nasal [place] (Fluticasone Propionate) 16 Gm [place].susp 2 [place] NS DAILY Finasteride 5 Mg Tablet 5 Mg PO HS Vitamin D2 (Ergocalciferol (Vitamin D2)) 50,000 Unit Capsule 50,000 Unit PO WEEKLY Donepezil Hcl 10 Mg Tablet 10 Mg PO DAILY Diagnosis: Problems: (1) Anxiety disorder (2) Dementia, vascular, with depression (3) Dementia, vascular, with delusions (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
[2017-03-29] MEDS: FINASTERIDE 5 MG TABLET PO SCH (20:52)
[2017-03-29] MEDS: SIMVASTATIN 20 MG TABLET PO SCH (20:52)
[2017-03-29] MEDS: QUEtiapine 25 MG TABLET. PO SCH (20:52)
--- NOTE | 2017-03-30 00:43 | PN ---
DATE: 03/28/2017 This late entry for 03/28/2017 covers elements not covered in my initial note of 03/28/2017. SUBJECTIVE: I met with the patient in the evening of 03/28/2017. The patient remains confused, somewhat forgetful, but pleasant, less labile, less delusional. REVIEW OF SYSTEMS: No CV, , pulmonary, eye, ENT system symptoms on review. Reliability poor. MENTAL STATUS EXAM: Oriented to himself. Insight, judgment, recent and remote memory, attention, concentration, fund of knowledge poor, consistent with his diagnosis mentioned in my initial note. PLAN: Continue Namenda 10 mg b.i.d., Aricept 10 mg a day, Zyprexa p.r.n., Zoloft 50 mg a day, melatonin p.r.n., Seroquel 25 mg at bedtime. Adjust further as clinically indicated. VALERIY LOPEZ MD DR: KATERYNA/augusto JOB#: [id number] / [id number]
[2017-03-30 06:16] VITALS: BP 134/74
[2017-03-30] MEDS: DONEPEZIL HCL 10 MG TABLET PO SCH (08:29)
[2017-03-30] MEDS: MEMANTINE 10 MG TABLET. PO SCH ×2 (08:29→20:22)
[2017-03-30] MEDS: amLODIPine BESYLATE 5 MG TABLET PO SCH (08:29)
[2017-03-30] MEDS: TAMSULOSIN 0.4 MG CAP.ER.24H. PO SCH (08:29)
[2017-03-30] MEDS: SERTRALINE 25 MG TABLET. PO SCH (08:30)
[2017-03-30] MEDS: CETIRIZINE HCL 10 MG TABLET PO SCH (08:30)
[2017-03-30] MEDS: FLUTICASONE 50MCG/NASAL SPRAY 16GM BOTTLE. NS SCH (08:32)
[2017-03-30] MEDS: TIMOLOL 0.5% OPHTH SOLUTION 5ML BOTTLE. OU SCH (08:32)
[2017-03-30 16:10] VITALS: BP 138/70
--- NOTE | 2017-03-30 19:59 | PDOC ---
Exam Kj Demential Exam: Kj Note: Please also refer to the separate dictated note~for this date of service dictated separately.~Patient seen individually. Discussed the patient with Nursing staff reviewed the chart.~Reviewed interim history and current functioning. Reviewed vital signs,~Labs/ Radiology~and current medications noted below. Continue current treatment with the changes noted in the dictated addendum note Assessment: Vital Signs: Vital Signs Date Time Temp Pulse Resp B/P (MAP) Pulse Ox O2 Delivery O2 Flow Rate FiO2 03/30/17 16:10 97.4 88 16 138/70 (92) 98 03/29/17 16:28 Room Air I&O Intake and Output 03/30/17 06:59 Intake Total 1320 ml Balance 1320 ml Intake Oral 1320 ml Current Medications: Meds: Current Medications Acetaminophen (Tylenol) 650 mg PRN Q6HRS PRN PO PAIN / TEMP; Start 03/24/17 at 03:15 Multi-Ingredient Ointment (Analgesic [place]) 1 stefanie PRN QID PRN TP MUSCLE PAIN; Start 03/24/17 at 03:15 Al Hydroxide/Mg Hydroxide (Mylanta Plus Xs) 15 ml PRN AFTMEALHC PRN PO DYSPEPSIA; Start 03/24/17 at 03:15 Magnesium Hydroxide (Milk Of Magnesia) 2,400 mg PRN QHS PRN PO CONSTIPATION; Start 03/24/17 at 03:15 Finasteride (Proscar) 5 mg HS PO Last administered on 03/29/17 20:52; Start at 21:00 Fluticasone Propionate (Flonase) 2 spray DAILY NS Last administered on 08:32; Start 03/24/17 at 09:00 Lisinopril (Prinivil) 10 mg DAILY PO Last administered on 03/24/17 09:26; Start 03/24/17 at 09:00; Stop 03/24/17 at 16:29; Status DC Simvastatin (Zocor) 20 mg HS PO Last administered on 03/29/17 20:52; Start at 21:00 Tamsulosin HCl (Flomax) 0.8 mg DAILY PO Last administered on 03/30/17 08:29; Start 03/24/17 at 09:00 Timolol Maleate (Timoptic 0.5% Oph) 1 drop DAILY OU Last administered on 03/30 08:32; Start 03/24/17 at 09:00 Vitamin D (Vitamin D3) 50,000 unit WEEKLY PO Last administered on 03/24/17 09: 28; Start 03/24/17 at 09:00 Cetirizine HCl (ZyrTEC) 10 mg DAILY PO Last administered on 03/30/17 08:30; Start 03/24/17 at 09:00 Donepezil HCl (Aricept) 10 mg DAILY PO Last administered on 03/30/17 08:29; Start 03/24/17 at 09:00 Memantine (Namenda) 10 mg BID PO Last administered on 03/30/17 08:29; Start at 09:00 Olanzapine (ZyPREXA ZYDIS) 2.5 mg PRN Q2HR PRN PO PSYCHOSIS Last administered on 03/27/17 00:26; Start 03/24/17 at 04:30 Amlodipine Besylate (Norvasc) 5 mg DAILY PO Last administered on 03/30/17 08: 29; Start 03/25/17 at 09:00 Sertraline HCl (Zoloft) 25 mg DAILY PO Last administered on 03/25/17 09:21; Start 03/25/17 at 09:00; Stop 03/25/17 at 18:40; Status DC Sertraline HCl (Zoloft) 50 mg DAILY PO Last administered on 03/30/17 08:30; Start 03/26/17 at 09:00; Stop 03/30/17 at 14:09; Status DC Quetiapine Fumarate (SEROquel) 25 mg QHS PO Last administered on 03/29/17 20: 52; Start 03/26/17 at 21:00 Melatonin 3 mg PRN QHS PRN PO INSOMNIA; Start 03/27/17 at 18:45 Sertraline HCl (Zoloft) 50 mg DAILY PO ; Start 03/31/17 at 09:00 Active Scripts Active Reported Timoptic (Timolol Maleate) 10 Ml Drops 1 Drop EACHEYE DAILY Tamsulosin Hcl 0.4 Mg Cap.er.24h 0.8 Mg PO DAILY Simvastatin 20 Mg Tablet 20 Mg PO HS Namenda (Memantine Hcl) 10 Mg Tablet 10 Mg PO BID Loratadine 10 Mg Tablet 10 Mg PO DAILY Lisinopril 10 Mg Tablet 10 Mg PO DAILY Fluticasone Propionate Nasal [place] (Fluticasone Propionate) 16 Gm [place].susp 2 [place] NS DAILY Finasteride 5 Mg Tablet 5 Mg PO HS Vitamin D2 (Ergocalciferol (Vitamin D2)) 50,000 Unit Capsule 50,000 Unit PO WEEKLY Donepezil Hcl 10 Mg Tablet 10 Mg PO DAILY Diagnosis: Problems: (1) Anxiety disorder (2) Dementia, vascular, with depression (3) Dementia, vascular, with delusions (4) Dementia in Alzheimer's disease with depression (5) 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
[2017-03-30] MEDS: FINASTERIDE 5 MG TABLET PO SCH (20:21)
[2017-03-30] MEDS: QUEtiapine 25 MG TABLET. PO SCH (20:22)
[2017-03-30] MEDS: SIMVASTATIN 20 MG TABLET PO SCH (20:22)
--- NOTE | 2017-03-31 02:04 | PN ---
DATE: 03/29/2017 This late entry 03/29/2017 covers elements not covered in my initial note of 03/29/2017. SUBJECTIVE: I met with the patient in the evening of 03/29/2017 in his room. Per nursing report, the patient is confused, pleasant and cooperative with medications and assessment, slept well. REVIEW OF SYSTEMS: No CV, , eye, ENT or pulmonary system symptoms on review. A little paranoid as I met with him in his room, unable to remember me, but said I looked familiar. I have been seeing him everyday. This is reflective of his short-term memory loss. MENTAL STATUS EXAM: Insight, judgment, recent memory is impaired. Remote is better, language function intact, attention span short. Mood and affect showing some improvement. LABORATORY DATA: Reviewed. IMPRESSION: Unchanged from initial note. PLAN: Continue psychotropics mentioned in my initial note, Namenda, Aricept, Zoloft 50 mg a day, Seroquel 25 mg at bedtime, melatonin 3 mg at bedtime p.r.n. Adjust further as clinically indicated. MAN Corinne LOPEZ MD DR: KATERYNA/augusto JOB#: [id number] / [id number]
[2017-03-31 06:01] VITALS: BP 151/76
[2017-03-31] MEDS: MEMANTINE 10 MG TABLET. PO SCH ×2 (08:39→20:06)
[2017-03-31] MEDS: TAMSULOSIN 0.4 MG CAP.ER.24H. PO SCH (08:39)
[2017-03-31] MEDS: DONEPEZIL HCL 10 MG TABLET PO SCH (08:39)
[2017-03-31] MEDS: amLODIPine BESYLATE 5 MG TABLET PO SCH (08:39)
[2017-03-31] MEDS: CETIRIZINE HCL 10 MG TABLET PO SCH (08:39)
[2017-03-31] MEDS: FLUTICASONE 50MCG/NASAL SPRAY 16GM BOTTLE. NS SCH (08:41)
[2017-03-31] MEDS: TIMOLOL 0.5% OPHTH SOLUTION 5ML BOTTLE. OU SCH (08:42)
[2017-03-31] MEDS: CHOLECALCIFEROL (VITAMIN D3) 50,000 UNIT CAPSULE PO SCH (08:42)
[2017-03-31] MEDS ORDERED: SERTRALINE 50 MG TABLET. PO SCH (09:00)
[2017-03-31 16:16] VITALS: BP 116/61
--- NOTE | 2017-03-31 18:54 | PDOC ---
Exam Kj Demential Exam: Kj Note: Please also refer to the separate dictated note~for this date of service dictated separately.~Patient seen individually. Discussed the patient with Nursing staff reviewed the chart.~Reviewed interim history and current functioning. Reviewed vital signs,~Labs/ Radiology~and current medications noted below. Continue current treatment with the changes noted in the dictated addendum note Assessment: Vital Signs: Vital Signs Date Time Temp Pulse Resp B/P (MAP) Pulse Ox O2 Delivery O2 Flow Rate FiO2 03/31/17 16:16 98.1 90 20 116/61 (79) 96 03/29/17 16:28 Room Air I&O Intake and Output 03/31/17 07:00 Intake Total 960 ml Balance 960 ml Intake Oral 960 ml Current Medications: Meds: Current Medications Acetaminophen (Tylenol) 650 mg PRN Q6HRS PRN PO PAIN / TEMP; Start 03/24/17 at 03:15 Multi-Ingredient Ointment (Analgesic [place]) 1 stefanie PRN QID PRN TP MUSCLE PAIN; Start 03/24/17 at 03:15 Al Hydroxide/Mg Hydroxide (Mylanta Plus Xs) 15 ml PRN AFTMEALHC PRN PO DYSPEPSIA; Start 03/24/17 at 03:15 Magnesium Hydroxide (Milk Of Magnesia) 2,400 mg PRN QHS PRN PO CONSTIPATION; Start 03/24/17 at 03:15 Finasteride (Proscar) 5 mg HS PO Last administered on 03/30/17 20:21; Start at 21:00 Fluticasone Propionate (Flonase) 2 spray DAILY NS Last administered on 08:41; Start 03/24/17 at 09:00 Lisinopril (Prinivil) 10 mg DAILY PO Last administered on 03/24/17 09:26; Start 03/24/17 at 09:00; Stop 03/24/17 at 16:29; Status DC Simvastatin (Zocor) 20 mg HS PO Last administered on 03/30/17 20:22; Start at 21:00 Tamsulosin HCl (Flomax) 0.8 mg DAILY PO Last administered on 03/31/17 08:39; Start 03/24/17 at 09:00 Timolol Maleate (Timoptic 0.5% Oph) 1 drop DAILY OU Last administered on 03/31 08:42; Start 03/24/17 at 09:00 Vitamin D (Vitamin D3) 50,000 unit WEEKLY PO Last administered on 03/31/17 08: 42; Start 03/24/17 at 09:00 Cetirizine HCl (ZyrTEC) 10 mg DAILY PO Last administered on 03/31/17 08:39; Start 03/24/17 at 09:00 Donepezil HCl (Aricept) 10 mg DAILY PO Last administered on 03/31/17 08:39; Start 03/24/17 at 09:00 Memantine (Namenda) 10 mg BID PO Last administered on 03/31/17 08:39; Start at 09:00 Olanzapine (ZyPREXA ZYDIS) 2.5 mg PRN Q2HR PRN PO PSYCHOSIS Last administered on 03/27/17 00:26; Start 03/24/17 at 04:30 Amlodipine Besylate (Norvasc) 5 mg DAILY PO Last administered on 03/31/17 08: 39; Start 03/25/17 at 09:00 Sertraline HCl (Zoloft) 25 mg DAILY PO Last administered on 03/25/17 09:21; Start 03/25/17 at 09:00; Stop 03/25/17 at 18:40; Status DC Sertraline HCl (Zoloft) 50 mg DAILY PO Last administered on 03/30/17 08:30; Start 03/26/17 at 09:00; Stop 03/30/17 at 14:09; Status DC Quetiapine Fumarate (SEROquel) 25 mg QHS PO Last administered on 03/30/17 20: 22; Start 03/26/17 at 21:00 Melatonin 3 mg PRN QHS PRN PO INSOMNIA; Start 03/27/17 at 18:45 Sertraline HCl (Zoloft) 50 mg DAILY PO Last administered on 03/31/17 08:42; Start 03/31/17 at 09:00; Stop 03/31/17 at 17:04; Status DC Sertraline HCl (Zoloft) 75 mg DAILY PO ; Start 04/01/17 at 09:00 Active Scripts Active Reported Tim[place] (Timolol Maleate) 10 Ml Drops 1 Drop [place] DAILY Tamsulosin Hcl 0.4 Mg Cap.er.24h 0.8 Mg PO DAILY Simvastatin 20 Mg Tablet 20 Mg PO HS Namenda (Memantine Hcl) 10 Mg Tablet 10 Mg PO BID Loratadine 10 Mg Tablet 10 Mg PO DAILY Lisinopril 10 Mg Tablet 10 Mg PO DAILY Fluticasone Propionate Nasal [place] (Fluticasone Propionate) 16 Gm [place].susp 2 [place] NS DAILY Finasteride 5 Mg Tablet 5 Mg PO HS Vitamin D2 (Ergocalciferol (Vitamin D2)) 50,000 Unit Capsule 50,000 Unit PO WEEKLY Donepezil Hcl 10 Mg Tablet 10 Mg PO DAILY Diagnosis: Problems: (1) Psychosis, 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
[2017-03-31] MEDS: FINASTERIDE 5 MG TABLET PO SCH (20:05)
[2017-03-31] MEDS: QUEtiapine 25 MG TABLET. PO SCH (20:06)
[2017-03-31] MEDS: SIMVASTATIN 20 MG TABLET PO SCH (20:06)
--- NOTE | 2017-04-01 04:14 | PN ---
DATE: 03/30/2017 PSYCHIATRIC PROGRESS NOTE This is a late entry of 03/30/2017 covers elements not covered in my initial note of 03/30/2017. SUBJECTIVE: The [facility] remains confused[facility] Sle[facility] 6-1/2 hours previous evening. No CV, , pulmonary, eye, ENT system symptoms on review. Gets a little anxious, paranoid, but redirectable, not aggressive. Social service staff are attempting to [facility]. REVIEW OF SYSTEMS: No CV, , pulmonary, eye, ENT system symptoms on review. MENTAL STATUS EXAM: Oriented to himself. Insight, judgment, recent memory is impaired. Remote is better. Language function intact. Mood and affect showing improvement, pleasant, verbal with me as I met with him. LABORATORY DATA: Reviewed. IMPRESSION: Unchanged from initial note. PLAN: Continue current psychotropics. Starting 03/31/2017 increase Zoloft to 75 mg a day. Adjust further as clinically indicated. MAN Corinne LOPEZ MD DR: KATERYNA/augusto JOB#: [id number] / [id number]
[2017-04-01 06:29] VITALS: BP 147/82
[2017-04-01] MEDS: CETIRIZINE HCL 10 MG TABLET PO SCH (08:11)
[2017-04-01] MEDS: TAMSULOSIN 0.4 MG CAP.ER.24H. PO SCH (08:11)
[2017-04-01] MEDS: DONEPEZIL HCL 10 MG TABLET PO SCH (08:11)
[2017-04-01] MEDS: amLODIPine BESYLATE 5 MG TABLET PO SCH (08:11)
[2017-04-01] MEDS: MEMANTINE 10 MG TABLET. PO SCH ×2 (08:11→19:51)
[2017-04-01] MEDS: TIMOLOL 0.5% OPHTH SOLUTION 5ML BOTTLE. OU SCH ×2 (08:14→19:51)
[2017-04-01] MEDS: FLUTICASONE 50MCG/NASAL SPRAY 16GM BOTTLE. NS SCH (08:14)
[2017-04-01] MEDS: SERTRALINE 50 MG TABLET. PO SCH (08:14)
[2017-04-01 09:16] LABS: ALBUMIN 3.6 g/dL (3.4-5.0); ALBUMIN/GLOBULIN RATIO 0.9 (1.0-1.7); CALCIUM 8.8 mg/dL (8.5-10.1); CREATININE 1.8 mg/dL (0.7-1.3); GFR 43.5; POTASSIUM 4.2 mmol/L (3.5-5.1); TOTAL BILIRUBIN 0.3 mg/dL (0.2-1.0); TOTAL PROTEIN 7.4 g/dL (6.4-8.2)
[2017-04-01 09:22] LABS: BASO % 1 % (0-3); EOS # 0.1 x10^3/uL (0.0-0.7); EOS % 2 % (0-3); HEMATOCRIT 40.1 % (39.0-53.0); HEMOGLOBIN 12.3 g/dL (13.0-17.5); LYMPH # 1.7 x10^3/uL (1.0-4.8); LYMPH % 27 % (24-48); MEAN CORPUSCULAR HEMOGLOBIN 28 pg (25-35); MEAN CORPUSCULAR HGB CONC 31 g/dL (31-37); MEAN CORPUSCULAR VOLUME 90 fL (79-100); MONO # 0.6 x10^3/uL (0.0-1.1); MONO % 10 % (0-9); NEUT # 3.8 x10^3uL (1.8-7.7); NEUT % 60 % (31-73); PLATELET COUNT 116 x10^3/uL (140-400); RED BLOOD COUNT 4.45 x10^6/uL (4.30-5.70); RED CELL DISTRIBUTION WIDTH 14.1 % (11.5-14.5); WHITE BLOOD COUNT 6.3 x10^3/uL (4.0-11.0)
[2017-04-01 16:34] VITALS: BP 151/73
--- NOTE | 2017-04-01 18:40 | PDOC ---
Exam Kj Demential Exam: Kj Note: Please also refer to the separate dictated note~for this date of service dictated separately.~Patient seen individually. Discussed the patient with Nursing staff reviewed the chart.~Reviewed interim history and current functioning. Reviewed vital signs,~Labs/ Radiology~and current medications noted below. Continue current treatment with the changes noted in the dictated addendum note Assessment: Vital Signs: Vital Signs Date Time Temp Pulse Resp B/P (MAP) Pulse Ox O2 Delivery O2 Flow Rate FiO2 04/01/17 16:34 97.8 99 19 151/73 (99) 97 03/29/17 16:28 Room Air I&O Intake and Output 04/01/17 07:00 Intake Total 1380 ml Balance 1380 ml Intake Oral 1380 ml Labs: Laboratory Tests Test 04/01/17 08:53 White Blood Count 6.3 x10^3/uL (4.0-11.0) Red Blood Count 4.45 x10^6/uL (4.30-5.70) Hemoglobin 12.3 g/dL (13.0-17.5) L Hematocrit 40.1 % (39.0-53.0) Mean Corpuscular Volume 90 fL (79-100) Mean Corpuscular Hemoglobin 28 pg (25-35) Mean Corpuscular Hemoglobin Concent 31 g/dL (31-37) Red Cell Distribution Width 14.1 % (11.5-14.5) Platelet Count 116 x10^3/uL (140-400) L Neutrophils (%) (Auto) 60 % (31-73) Lymphocytes (%) (Auto) 27 % (24-48) Monocytes (%) (Auto) 10 % (0-9) H Eosinophils (%) (Auto) 2 % (0-3) Basophils (%) (Auto) 1 % (0-3) Neutrophils # (Auto) 3.8 x10^3uL (1.8-7.7) Lymphocytes # (Auto) 1.7 x10^3/uL (1.0-4.8) Monocytes # (Auto) 0.6 x10^3/uL (0.0-1.1) Eosinophils # (Auto) 0.1 x10^3/uL (0.0-0.7) Basophils # (Auto) 0.0 x10^3/uL (0.0-0.2) Sodium Level 140 mmol/L (136-145) Potassium Level 4.2 mmol/L (3.5-5.1) Chloride Level 103 mmol/L (98-107) Carbon Dioxide Level 33 mmol/L (21-32) H Anion Gap 4 (6-14) L Blood Urea Nitrogen 26 mg/dL (8-26) Creatinine 1.8 mg/dL (0.7-1.3) H Estimated GFR (Cockcroft-Gault) 43.5 BUN/Creatinine Ratio 14 (6-20) Glucose Level 143 mg/dL (70-99) H Calcium Level 8.8 mg/dL (8.5-10.1) Magnesium Level 2.1 mg/dL (1.8-2.4) Total Bilirubin 0.3 mg/dL (0.2-1.0) Aspartate Amino Transferase (AST) 20 U/L (15-37) Alanine Aminotransferase (ALT) 17 U/L (16-63) Alkaline Phosphatase 82 U/L (46-116) Total Protein 7.4 g/dL (6.4-8.2) Albumin 3.6 g/dL (3.4-5.0) Albumin/Globulin Ratio 0.9 (1.0-1.7) L Current Medications: Meds: Current Medications Acetaminophen (Tylenol) 650 mg PRN Q6HRS PRN PO PAIN / TEMP; Start 03/24/17 at 03:15 Multi-Ingredient Ointment (Analgesic [place]) 1 stefanie PRN QID PRN TP MUSCLE PAIN; Start 03/24/17 at 03:15 Al Hydroxide/Mg Hydroxide (Mylanta Plus Xs) 15 ml PRN AFTMEALHC PRN PO DYSPEPSIA; Start 03/24/17 at 03:15 Magnesium Hydroxide (Milk Of Magnesia) 2,400 mg PRN QHS PRN PO CONSTIPATION; Start 03/24/17 at 03:15 Finasteride (Proscar) 5 mg HS PO Last administered on 03/31/17t 20:05; Start at 21:00 Fluticasone Propionate (Flonase) 2 spray DAILY NS Last administered on 08:14; Start 03/24/17 at 09:00 Lisinopril (Prinivil) 10 mg DAILY PO Last administered on 03/24/17 09:26; Start 03/24/17 at 09:00; Stop 03/24/17 at 16:29; Status DC Simvastatin (Zocor) 20 mg HS PO Last administered on 03/31/17 20:06; Start at 21:00 Tamsulosin HCl (Flomax) 0.8 mg DAILY PO Last administered on 04/01/17 08:11; Start 03/24/17 at 09:00 Timolol Maleate (Timoptic 0.5% Oph) 1 drop DAILY OU Last administered on 04/01 08:14; Start 03/24/17 at 09:00 Vitamin D (Vitamin D3) 50,000 unit WEEKLY PO Last administered on 03/31/17 08: 42; Start 03/24/17 at 09:00 Cetirizine HCl (ZyrTEC) 10 mg DAILY PO Last administered on 04/01/17 08:11; Start 03/24/17 at 09:00 Donepezil HCl (Aricept) 10 mg DAILY PO Last administered on 04/01/17 08:11; Start 03/24/17 at 09:00 Memantine (Namenda) 10 mg BID PO Last administered on 04/01/17 08:11; Start at 09:00 Olanzapine (ZyPREXA ZYDIS) 2.5 mg PRN Q2HR PRN PO PSYCHOSIS Last administered on 03/27/17 00:26; Start 03/24/17 at 04:30 Amlodipine Besylate (Norvasc) 5 mg DAILY PO Last administered on 04/01/17 08: 11; Start 03/25/17 at 09:00 Sertraline HCl (Zoloft) 25 mg DAILY PO Last administered on 03/25/17 09:21; Start 03/25/17 at 09:00; Stop 03/25/17 at 18:40; Status DC Sertraline HCl (Zoloft) 50 mg DAILY PO Last administered on 03/30/17 08:30; Start 03/26/17 at 09:00; Stop 03/30/17 at 14:09; Status DC Quetiapine Fumarate (SEROquel) 25 mg QHS PO Last administered on 03/31/17 20: 06; Start 03/26/17 at 21:00 Melatonin 3 mg PRN QHS PRN PO INSOMNIA; Start 03/27/17 at 18:45 Sertraline HCl (Zoloft) 50 mg DAILY PO Last administered on 03/31/17 08:42; Start 03/31/17 at 09:00; Stop 03/31/17 at 17:04; Status DC Sertraline HCl (Zoloft) 75 mg DAILY PO Last administered on 04/01/17 08:14; Start 04/01/17 at 09:00 Active Scripts Active Reported Timoptic (Timolol Maleate) 10 Ml Drops 1 Drop EACHEYE DAILY Tamsulosin Hcl 0.4 Mg Cap.er.24h 0.8 Mg PO DAILY Simvastatin 20 Mg Tablet 20 Mg PO HS Namenda (Memantine Hcl) 10 Mg Tablet 10 Mg PO BID Loratadine 10 Mg Tablet 10 Mg PO DAILY Lisinopril 10 Mg Tablet 10 Mg PO DAILY Fluticasone Propionate Nasal [place] (Fluticasone Propionate) 16 Gm [place].susp 2 [place] NS DAILY Finasteride 5 Mg Tablet 5 Mg PO HS Vitamin D2 (Ergocalciferol (Vitamin D2)) 50,000 Unit Capsule 50,000 Unit PO WEEKLY Donepezil Hcl 10 Mg Tablet 10 Mg PO DAILY Diagnosis: Problems: (1) Psychosis, 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
[2017-04-01] MEDS: QUEtiapine 25 MG TABLET. PO SCH (19:51)
[2017-04-01] MEDS: SIMVASTATIN 20 MG TABLET PO SCH (19:51)
[2017-04-01] MEDS: FINASTERIDE 5 MG TABLET PO SCH (19:51)
--- NOTE | 2017-04-02 03:40 | PN ---
DATE: 03/31/2017 This is a late entry 03/31/2017 covers elements not covered in my initial note of 03/31/2017. I met with the patient in the evening of 03/31/2017. He remains confused, believed that he was at [facility] and sometimes thinks he is in [place]. He has not been aggressive. REVIEW OF SYSTEMS: No CV, , pulmonary, eye system symptoms on review. Reliability poor. MENTAL STATUS EXAM: Oriented to himself, pleasant, smiling as I met with him, unsure if he had ever met me before even though I see him everyday. Speech has some latency, coherent. Abstraction fair, computation impaired, language function intact, attention span short, mood and affect withdrawn. Discussed with social service staff. Labs reviewed. IMPRESSION: Unchanged from initial note. PLAN: Continue current psychotropics, reviewed drug interactions, risk/benefit ratio favors no change at this time. [facility] staff [facility]. VALERIY LOPEZ MD DR: KATERYNA/augusto JOB#: [id number] / [id number]
[2017-04-02 06:23] VITALS: BP 156/77
[2017-04-02] MEDS: TAMSULOSIN 0.4 MG CAP.ER.24H. PO SCH (08:11)
[2017-04-02] MEDS: DONEPEZIL HCL 10 MG TABLET PO SCH (08:11)
[2017-04-02] MEDS: amLODIPine BESYLATE 5 MG TABLET PO SCH (08:11)
[2017-04-02] MEDS: MEMANTINE 10 MG TABLET. PO SCH ×2 (08:11→19:34)
[2017-04-02] MEDS: SERTRALINE 50 MG TABLET. PO SCH (08:11)
[2017-04-02] MEDS: CETIRIZINE HCL 10 MG TABLET PO SCH (08:11)
[2017-04-02] MEDS: FLUTICASONE 50MCG/NASAL SPRAY 16GM BOTTLE. NS SCH (08:12)
[2017-04-02 16:19] VITALS: BP 154/90
[2017-04-02] MEDS: QUEtiapine 25 MG TABLET. PO SCH (19:33)
[2017-04-02] MEDS: SIMVASTATIN 20 MG TABLET PO SCH (19:33)
[2017-04-02] MEDS: FINASTERIDE 5 MG TABLET PO SCH (19:34)
--- NOTE | 2017-04-02 20:50 | PDOC ---
Exam Kj Demential Exam: Kj Note: Please also refer to the separate dictated note~for this date of service dictated separately.~Patient seen individually. Discussed the patient with Nursing staff reviewed the chart.~Reviewed interim history and current functioning. Reviewed vital signs,~Labs/ Radiology~and current medications noted below. Continue current treatment with the changes noted in the dictated addendum note Assessment: Vital Signs: Vital Signs Date Time Temp Pulse Resp B/P (MAP) Pulse Ox O2 Delivery O2 Flow Rate FiO2 04/02/17 16:19 98.1 82 20 154/90 (111) 97 03/29/17 16:28 Room Air I&O Intake and Output 04/02/17 07:00 Intake Total 1500 ml Balance 1500 ml Intake Oral 1500 ml Current Medications: Meds: Current Medications Acetaminophen (Tylenol) 650 mg PRN Q6HRS PRN PO PAIN / TEMP; Start 03/24/17 at 03:15 Multi-Ingredient Ointment (Analgesic [place]) 1 stefanie PRN QID PRN TP MUSCLE PAIN; Start 03/24/17 at 03:15 Al Hydroxide/Mg Hydroxide (Mylanta Plus Xs) 15 ml PRN AFTMEALHC PRN PO DYSPEPSIA; Start 03/24/17 at 03:15 Magnesium Hydroxide (Milk Of Magnesia) 2,400 mg PRN QHS PRN PO CONSTIPATION; Start 03/24/17 at 03:15 Finasteride (Proscar) 5 mg HS PO Last administered on 04/02/17 19:34; Start at 21:00 Fluticasone Propionate (Flonase) 2 spray DAILY NS Last administered on 08:12; Start 03/24/17 at 09:00 Lisinopril (Prinivil) 10 mg DAILY PO Last administered on 03/24/17 09:26; Start 03/24/17 at 09:00; Stop 03/24/17 at 16:29; Status DC Simvastatin (Zocor) 20 mg HS PO Last administered on 04/02/17 19:33; Start at 21:00 Tamsulosin HCl (Flomax) 0.8 mg DAILY PO Last administered on 04/02/17 08:11; Start 03/24/17 at 09:00 Timolol Maleate (Timoptic 0.5% Ophth) 1 drop DAILY OU Last administered on 04/01 19:51; Start 03/24/17 at 09:00 Vitamin D (Vitamin D3) 50,000 unit WEEKLY PO Last administered on 03/31/17 08: 42; Start 03/24/17 at 09:00 Cetirizine HCl (ZyrTEC) 10 mg DAILY PO Last administered on 04/02/17 08:11; Start 03/24/17 at 09:00 Donepezil HCl (Aricept) 10 mg DAILY PO Last administered on 04/02/17 08:11; Start 03/24/17 at 09:00 Memantine (Namenda) 10 mg BID PO Last administered on 04/02/17 19:34; Start at 09:00 Olanzapine (ZyPREXA ZYDIS) 2.5 mg PRN Q2HR PRN PO PSYCHOSIS Last administered on 03/27/17 00:26; Start 03/24/17 at 04:30 Amlodipine Besylate (Norvasc) 5 mg DAILY PO Last administered on 04/02/17 08: 11; Start 03/25/17 at 09:00 Sertraline HCl (Zoloft) 25 mg DAILY PO Last administered on 03/25/17 09:21; Start 03/25/17 at 09:00; Stop 03/25/17 at 18:40; Status DC Sertraline HCl (Zoloft) 50 mg DAILY PO Last administered on 03/30/17 08:30; Start 03/26/17 at 09:00; Stop 03/30/17 at 14:09; Status DC Quetiapine Fumarate (SEROquel) 25 mg QHS PO Last administered on 04/02/17 19: 33; Start 03/26/17 at 21:00 Melatonin 3 mg PRN QHS PRN PO INSOMNIA; Start 03/27/17 at 18:45 Sertraline HCl (Zoloft) 50 mg DAILY PO Last administered on 03/31/17 08:42; Start 03/31/17 at 09:00; Stop 03/31/17 at 17:04; Status DC Sertraline HCl (Zoloft) 75 mg DAILY PO Last administered on 04/02/17 08:11; Start 04/01/17 at 09:00 Active Scripts Active Reported Timoptic (Timolol Maleate) 10 Ml Drops 1 Drop EACHEYE DAILY Tamsulosin Hcl 0.4 Mg Cap.er.24h 0.8 Mg PO DAILY Simvastatin 20 Mg Tablet 20 Mg PO HS Namenda (Memantine Hcl) 10 Mg Tablet 10 Mg PO BID Loratadine 10 Mg Tablet 10 Mg PO DAILY Lisinopril 10 Mg Tablet 10 Mg PO DAILY Fluticasone Propionate Nasal [place] (Fluticasone Propionate) 16 Gm [place].susp 2 [place] NS DAILY Finasteride 5 Mg Tablet 5 Mg PO HS Vitamin D2 (Ergocalciferol (Vitamin D2)) 50,000 Unit Capsule 50,000 Unit PO WEEKLY Donepezil Hcl 10 Mg Tablet 10 Mg PO DAILY Diagnosis: Problems: (1) Anxiety disorder (2) Dementia, vascular, with depression (3) Dementia, vascular, with delusions (4) Dementia in Alzheimer's disease with depression (5) 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
[2017-04-02] MEDS ORDERED: CETI10TA30 PO (21:03)
[2017-04-02] MEDS ORDERED: CHOL500016 PO (21:06)
[2017-04-02] MEDS ORDERED: AMLO5TAB2 PO (21:13)
[2017-04-02] MEDS ORDERED: ACET650S19 PO (21:19)
[2017-04-02] MEDS ORDERED: MELA3TAB2 PO (21:21)
[2017-04-02] MEDS ORDERED: MELA3TAB43 PO (21:21)
[2017-04-02] MEDS ORDERED: OLAN5TAB5 PO (21:34)
[2017-04-02] MEDS ORDERED: QUET25TA5 PO (21:36)
[2017-04-02] MEDS ORDERED: SERT100T PO (21:37)
[2017-04-02] MEDS ORDERED: METH29OI TP (21:40)
[2017-04-02] MEDS ORDERED: MAG30ORA2 PO (21:43)
[2017-04-02] MEDS ORDERED: MAGN2400 PO (21:45)
[2017-04-02] MEDS ORDERED: SERT50TA8 PO (21:46)
--- NOTE | 2017-04-03 01:20 | PN ---
DATE: 04/01/2017 This is late entry 04/01/2017 covers elements not covered in my initial note of 04/01/2017. SUBJECTIVE: I met with the patient on the evening of 04/01/2017. The patient remains confused, forgetful, otherwise, pleasant. REVIEW OF SYSTEMS: No CV, , pulmonary, eye, ENT system symptoms on review. MENTAL STATUS EXAM: Oriented to himself and situation. Speech has some latency. He is pleasant, cooperative, short term memory is significantly impaired, abstraction fair, computation impaired, language function intact, attention span short, mood and affect is quite the above, is improved. No suicidal or homicidal ideation. LABORATORY DATA: Reviewed. IMPRESSION: Unchanged from initial note. PLAN: Continue current psychotropics, reviewed drug interactions, risk and benefit ratio favors no further changes of now. Transition to placement is arranged by social service staff. Reviewed and drug interactions and risk, benefit ratio of his current psychotropics. VALERIY LOPEZ MD DR: KATERYNA/augusto JOB#: [id number] / [id number]
[2017-04-03 06:09] VITALS: BP 150/64
[2017-04-03] MEDS: DONEPEZIL HCL 10 MG TABLET PO SCH (08:40)
[2017-04-03] MEDS: CETIRIZINE HCL 10 MG TABLET PO SCH (08:40)
[2017-04-03 08:41] VITALS: BP 150/64
[2017-04-03] MEDS: SERTRALINE 50 MG TABLET. PO SCH (08:41)
[2017-04-03] MEDS: amLODIPine BESYLATE 5 MG TABLET PO SCH (08:41)
[2017-04-03] MEDS: TAMSULOSIN 0.4 MG CAP.ER.24H. PO SCH (08:41)
[2017-04-03] MEDS: MEMANTINE 10 MG TABLET. PO SCH (08:41)
[2017-04-03] MEDS: FLUTICASONE 50MCG/NASAL SPRAY 16GM BOTTLE. NS SCH (08:42)
[2017-04-03] MEDS: TIMOLOL 0.5% OPHTH SOLUTION 5ML BOTTLE. OU SCH (08:42)
--- NOTE | 2017-04-03 10:23 | PDOC ---
Exam Kj Demential Exam: Kj Note: Please also refer to the separate dictated note~for this date of service dictated separately.~Patient seen individually. Discussed the patient with Nursing staff reviewed the chart.~Reviewed interim history and current functioning. Reviewed vital signs,~Labs/ Radiology~and current medications noted below. Continue current treatment with the changes noted in the dictated addendum note Assessment: Vital Signs: Vital Signs Date Time Temp Pulse Resp B/P (MAP) Pulse Ox O2 Delivery O2 Flow Rate FiO2 04/03/17 08:41 87 150/64 04/03/17 06:09 98.3 20 95 03/29/17 16:28 Room Air I&O Intake and Output 04/03/17 07:00 Intake Total 1440 ml Balance 1440 ml Intake Oral 1440 ml Current Medications: Meds: Current Medications Acetaminophen (Tylenol) 650 mg PRN Q6HRS PRN PO PAIN / TEMP; Start 03/24/17 at 03:15 Multi-Ingredient Ointment (Analgesic [place]) 1 [place] PRN QID PRN TP MUSCLE PAIN; Start 03/24/17 at 03:15 Al Hydroxide/Mg Hydroxide (Mylanta Plus Xs) 15 ml PRN AFTMEALHC PRN PO DYSPEPSIA; Start 03/24/17 at 03:15 Magnesium Hydroxide (Milk Of Magnesia) 2,400 mg PRN QHS PRN PO CONSTIPATION; Start 03/24/17 at 03:15 Finasteride (Proscar) 5 mg HS PO Last administered on 04/02/17 19:34; Start at 21:00 Fluticasone Propionate (Flonase) 2 spray DAILY NS Last administered on 08:42; Start 03/24/17 at 09:00 Lisinopril (Prinivil) 10 mg DAILY PO Last administered on 03/24/17 09:26; Start 03/24/17 at 09:00; Stop 03/24/17 at 16:29; Status DC Simvastatin (Zocor) 20 mg HS PO Last administered on 04/02/17 19:33; Start at 21:00 Tamsulosin HCl (Flomax) 0.8 mg DAILY PO Last administered on 04/03/17 08:41; Start 03/24/17 at 09:00 Timolol Maleate (Timoptic 0.5% Oph) 1 drop DAILY OU Last administered on 04/03 08:42; Start 03/24/17 at 09:00 Vitamin D (Vitamin D3) 50,000 unit WEEKLY PO Last administered on 03/31/17 08: 42; Start 03/24/17 at 09:00 Cetirizine HCl (ZyrTEC) 10 mg DAILY PO Last administered on 04/03/17 08:40; Start 03/24/17 at 09:00 Donepezil HCl (Aricept) 10 mg DAILY PO Last administered on 04/03/17 08:40; Start 03/24/17 at 09:00 Memantine (Namenda) 10 mg BID PO Last administered on 04/03/17 08:41; Start at 09:00 Olanzapine (ZyPREXA ZYDIS) 2.5 mg PRN Q2HR PRN PO PSYCHOSIS Last administered on 03/27/17 00:26; Start 03/24/17 at 04:30 Amlodipine Besylate (Norvasc) 5 mg DAILY PO Last administered on 04/03/17 08: 41; Start 03/25/17 at 09:00 Sertraline HCl (Zoloft) 25 mg DAILY PO Last administered on 03/25/17 09:21; Start 03/25/17 at 09:00; Stop 03/25/17 at 18:40; Status DC Sertraline HCl (Zoloft) 50 mg DAILY PO Last administered on 03/30/17 08:30; Start 03/26/17 at 09:00; Stop 03/30/17 at 14:09; Status DC Quetiapine Fumarate (SEROquel) 25 mg QHS PO Last administered on 04/02/17 19: 33; Start 03/26/17 at 21:00 Melatonin 3 mg PRN QHS PRN PO INSOMNIA; Start 03/27/17 at 18:45 Sertraline HCl (Zoloft) 50 mg DAILY PO Last administered on 03/31/17 08:42; Start 03/31/17 at 09:00; Stop 03/31/17 at 17:04; Status DC Sertraline HCl (Zoloft) 75 mg DAILY PO Last administered on 04/03/17 08:41; Start 04/01/17 at 09:00 Active Scripts Active Reported Milk Of Magnesia (Magnesium Hydroxide) 2,400 Mg/10 Ml Oral.susp 2,400 Mg PO PRN QHS PRN Mag-Al Plus Xs Suspension (Mag Hydrox/Al Hydrox/Simeth) 30 Ml Oral.susp 15 Ml PO PRN AFTMEAL PRN Analgesic [place] (Methyl Salicylate/Menthol) 28 Gm Oint...g. 1 [place] TP PRN QID PRN Zoloft (Sertraline Hcl) 100 Mg Tablet 75 Mg PO DAILY Seroquel (Quetiapine Fumarate) 25 Mg Tablet 1 Tab PO QHS Zyprexa Zydis (Olanzapine) 5 Mg Tab.rapdis 2.5 Mg PO PRN Q2HR PRN Melatonin 3 Mg Tablet 1 Tab PO PRN QHS PRN Melatonin 3 Mg Tab.rapdis 3 Mg PO Acetaminophen 650 Mg/20.3 Ml Solution 650 Mg PO PRN Q6HRS PRN Amlodipine Besylate 5 Mg Tablet 1 Tab PO DAILY Vitamin D3 (Cholecalciferol (Vitamin D3)) 5,000 Unit Tablet 1 Tab PO WEEKLY Cetirizine Hcl 10 Mg Tab.chew 10 Mg PO DAILY Timoptic (Timolol Maleate) 10 Ml Drops 1 Drop EACHEYE DAILY Tamsulosin Hcl 0.4 Mg Cap.er.24h 0.8 Mg PO DAILY Simvastatin 20 Mg Tablet 20 Mg PO HS Namenda (Memantine Hcl) 10 Mg Tablet 10 Mg PO BID Loratadine 10 Mg Tablet 10 Mg PO DAILY Lisinopril 10 Mg Tablet 10 Mg PO DAILY Fluticasone Propionate Nasal [place] (Fluticasone Propionate) 16 Gm [place].susp 2 [place] NS DAILY Finasteride 5 Mg Tablet 5 Mg PO HS Donepezil Hcl 10 Mg Tablet 10 Mg PO DAILY Diagnosis: Problems: (1) Psychosis, 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
--- NOTE | 2017-04-03 21:58 | DS ---
DATE OF DISCHARGE: 04/03/2017 DISCHARGE SUMMARY AND PSYCHIATRIC PROGRESS NOTE REASON FOR ADMISSION: Please refer to the admission history for details. Briefly, the patient is an 86-year-old -Chinese male, referred to us from the [facility] where he presented to the Emergency Room from home on account of increased aggressiveness with his over the past week. He was more confused, threatened to shoot his . He had previously lost his driving privileges. Reportedly, the has ALS and was not able to help him as much now which exacerbated the patient's anger, mood lability. He was deemed a potential danger, referred from the [place] [facility] to us for inpatient psychiatric stabilization. SIGNIFICANT FINDINGS AND CLINICAL COURSE: Following admission, the patient was seen daily individually by myself, followed medically per Dr. Martin/Dr. Baptiste. I met with the patient daily. He is confused, forgetful, pleasant, but depressed, anxious. He is also somewhat paranoid. Adjustments were made in his psychotropics. He seemed to respond to a combination of Namenda 10 mg b.i.d., Aricept 10 mg a day, Zyprexa p.r.n., Zoloft 75 mg a day, Seroquel 25 mg at bedtime, melatonin p.r.n. MENTAL STATUS EXAM: Prior to discharge on 04/03/2017, I met with him in his room. Oriented to himself and situation. Speech coherent, abstraction fair, computation impaired, language function intact. Mood and affect showing improvement. No active suicidal or homicidal ideation. Memory is impaired. CONDITION ON DISCHARGE: Improved. FINAL DIAGNOSES: Major neurocognitive disorder, Alzheimer, vascular with depression, delusion, behavioral disturbance; anxiety disorder, unspecified; impulse control disorder, unspecified. Rest of diagnoses unchanged. DISCHARGE MEDICATIONS: Please refer to the [facility]. DISCHARGE INSTRUCTIONS: Outpatient psychiatric and medical followup at the sn[facility]. Time for discharge day management is greater than 30 minutes. VALERIY LOPEZ MD DR: KATERYNA/augusto JOB#: [id number] / [id number]
--- NOTE | 2017-04-03 23:02 | PN ---
DATE: 04/02/2017 PSYCHIATRIC PROGRESS NOTE This is a late entry for 04/02/2017, covers elements not covered in my initial note of 04/02/2017. SUBJECTIVE: The patient was staffed at a treatment team meeting with the entire team the morning of 04/02/2017, seen individually the evening of 04/02/2017. The patient remains confused, but otherwise pleasant, not aggressive, no clear psychotic symptoms noted. Reviewed his history, diagnosis, placement options with social service staff. REVIEW OF SYSTEMS: No CV, , eye, ENT or pulmonary system symptoms on review. Reliability poor. MENTAL STATUS EXAM: Oriented to himself as I met with him the evening of 04/02/2017. Insight, judgment, recent memory is impaired. Language function intact, attention span short, mood and affect improved. He is quite verbal, animated, wanting something from his closet then quickly forgot about it after he had asked me to follow him to his room for this. LABORATORY DATA: Reviewed. IMPRESSION: Unchanged from initial note. PLAN: Continue current psychotropics. Reviewed drug interactions. Risk/benefit ratio favors no further change at this time. Discussed placement at [employer] or with social service staff. MAN Corinne LOPEZ MD DR: KATERYNA/augusto JOB#: [id number] / [id number]
== END 2017-04-03 13:02 | disposition home health service (06) | DRG 884 ==
LOC: UNDOADMIN 00:54 → GEROPSY 00:54
PROVIDERS: ADMIT Psychiatry & Neurology Psychiatry; ATTEND Psychiatry & Neurology Psychiatry
DX: F01.51 Vascular dementia, unspecified severity, with behavioral disturbance (principal); G30.9 Alzheimer's disease, unspecified; F22 Delusional disorders; E78.5 Hyperlipidemia, unspecified; F32.9 Major depressive disorder, single episode, unspecified; F41.9 Anxiety disorder, unspecified; F63.9 Impulse disorder, unspecified; N18.9 Chronic kidney disease, unspecified; I12.9 Hypertensive chronic kidney disease with stage 1 through stage 4 chronic kidney disease, or unspecified chronic kidney disease; K21.9 Gastro-esophageal reflux disease without esophagitis; N40.0 Benign prostatic hyperplasia without lower urinary tract symptoms; G56.00 Carpal tunnel syndrome, unspecified upper limb; Z79.899 Other long term (current) drug therapy
CPT/HCPCS: 36415; 80053; 80061; 81001; 82306; 82607; 83036; 83735; 84436; 84443; 84480; 85025; 86592; 86593; 93005